=== PATIENT | male | born 1945 | race Caucasian/White ===

== ENCOUNTER 2017-04-30 16:53 | Observation (INO) | payer OTHER, SELFPAY ==
[~2017-04-30] VITALS: Ht 170.2 cm; Wt 91.6 kg
[2017-04-30] MEDS ORDERED: GLIM2TAB PO (17:19)
[2017-04-30] MEDS ORDERED: INSULANT SC (17:19)
[2017-04-30] MEDS ORDERED: LOSA100T36 PO (17:19)
[2017-04-30] MEDS ORDERED: METF10004 PO (17:19)
[2017-04-30] MEDS ORDERED: SIMV80TA PO (17:19)
[2017-04-30] MEDS ORDERED: ONDANSETRON 4MG/2ML VIAL (J2405) IV ONE (17:30)
[2017-04-30] MEDS ORDERED: NS 500 ML IV ONE (17:30)
[2017-04-30 17:41] LABS: BASO % 0.6 % (0.0-1.0); EOS # 0.1 K/mm3 (0.0-0.50); EOS % 0.7 % (0.0-3.0); LARGE UNSTAINED CELL # 0.2 K/mm3 (0.0-0.4); LARGE UNSTAINED CELL % 1.6 % (0.0-4.0); LYMPH # 2.4 K/mm3 (1.5-4.5); LYMPH % 24.9 % (24.0-44.0); MEAN CORPUSCULAR HEMOGLOBIN 30.1 pg (27.0-33.0); MEAN CORPUSCULAR HGB CONC 35.3 g/dl (32.0-36.5); MEAN CORPUSCULAR VOLUME 85.2 fl (80.0-96.0); MONO # 0.4 K/mm3 (0.0-0.8); MONO % 4.3 % (0.0-5.0); NEUTROPHILS # 6.5 K/mm3 (1.8-7.7); NEUTROPHILS % 67.9 % (36.0-66.0); PLATELET COUNT, AUTOMATED 226 k/mm3 (150-450); RED CELL DISTRIBUTION WIDTH 12.3 % (11.5-14.5); WHITE BLOOD COUNT 9.5 K/mm3 (4.0-10.0)
[2017-04-30 17:56] LABS: ALBUMIN 3.7 GM/DL (3.2-5.2); ALBUMIN/GLOBULIN RATIO 0.97 (1.00-1.93); ALKALINE PHOSPHATASE 72 U/L (45-117); ALT/SGPT 25 U/L (12-78); ANION GAP 9 MEQ/L (8-16); AST/SGOT 12 U/L (15-37); BILIRUBIN,DIRECT < 0.1 MG/DL (0.0-0.2); BILIRUBIN,TOTAL 0.3 MG/DL (0.2-1.0); BLOOD UREA NITROGEN 21 MG/DL (7-18); CALCIUM LEVEL 9.3 MG/DL (8.8-10.2); CARBON DIOXIDE LEVEL 24 MEQ/L (21-32); CHLORIDE LEVEL 101 MEQ/L (98-107); CREATININE FOR GFR 1.05 MG/DL (0.70-1.30); GLOMERULAR FILTRATION RATE > 60.0 (>42); GLUCOSE, FASTING 258 MG/DL (83-110); POTASSIUM SERUM 3.6 MEQ/L (3.5-5.1); SODIUM LEVEL 134 MEQ/L (136-145); TOTAL PROTEIN 7.5 GM/DL (6.4-8.2)
--- NOTE | 2017-04-30 18:51 | REP ---
CT BRAIN WITHOUT CONTRAST: CT brain is performed without IV contrast. There is mild atrophy. There is no midline shift. There is some minor periventricular small vessel ischemic changes which are probably old. There are minor basal ganglia calcifications. There is no acute hemorrhage. There is no extra-axial fluid collection. Bone window examination is unremarkable. IMPRESSION: Mild atrophy and chronic small vessel ischemic changes. No acute intracranial hemorrhage or other acute finding. Signed by Maciel Agee MD 04/30/2017 07:15 P
--- NOTE | 2017-04-30 19:00 | REP ---
ABDOMINAL SERIES: Supine and erect views of the abdomen demonstrate no free air and no evidence for bowel obstruction. No dilated small bowel loops are seen. Phleboliths are seen in the inferior pelvis. There are degenerative changes of the spine. An accompanying view of the chest demonstrates no acute infiltrate. There is calcification of the thoracic aorta. IMPRESSION: Negative abdominal series. Signed by Maciel Agee MD 04/30/2017 07:15 P
[2017-04-30] MEDS ORDERED: SODIUM CHLORIDE 0.9% 1000 ML IV ONE (20:45)
[2017-04-30] MEDS ORDERED: ONDANSETRON 4MG/2ML VIAL (J2405) IV PRN (22:15)
[2017-04-30] MEDS ORDERED: DEXTROSE 50% 50 ML SYRINGE IV PRN (22:15)
[2017-04-30] MEDS ORDERED: GLUCAGON FOR INJ 1 MG VIAL (J1610) SC PRN (22:15)
[2017-04-30] MEDS ORDERED: GLUCOSE 4 GM CHEW TABLET PO PRN (22:15)
[2017-04-30 23:53] VITALS: BP 184/91
[2017-05-01] VITALS (22 sets, daily range): BP systolic 136–203; BP diastolic 68–112
[2017-05-01] MEDS: HumaLOG INSULIN (NovoLOG) PER UNIT SC SCH ×5 (00:06→20:28)
[2017-05-01 04:35] LABS: MEAN CORPUSCULAR HEMOGLOBIN 31.4 pg (27.0-33.0); MEAN CORPUSCULAR HGB CONC 36.4 g/dl (32.0-36.5); MEAN CORPUSCULAR VOLUME 86.4 fl (80.0-96.0); RED CELL DISTRIBUTION WIDTH 12.7 % (11.5-14.5); WHITE BLOOD COUNT 9.4 K/mm3 (4.0-10.0)
[2017-05-01 05:07] LABS: ANION GAP 10 MEQ/L (8-16); BLOOD UREA NITROGEN 20 MG/DL (7-18); CALCIUM LEVEL 8.7 MG/DL (8.8-10.2); CARBON DIOXIDE LEVEL 28 MEQ/L (21-32); CHLORIDE LEVEL 105 MEQ/L (98-107); CHOLESTEROL LEVEL 104 MG/DL (<200); CREATININE FOR GFR 1.17 MG/DL (0.70-1.30); GLOMERULAR FILTRATION RATE > 60.0 (>42); GLUCOSE, FASTING 250 MG/DL (83-110); MAGNESIUM LEVEL 1.9 MG/DL (1.8-2.4); POTASSIUM SERUM 3.7 MEQ/L (3.5-5.1); SODIUM LEVEL 143 MEQ/L (136-145); TRIGLYCERIDES LEVEL 138 MG/DL (<150)
--- NOTE | 2017-05-01 07:54 | HPE ---
DATE OF ADMISSION: 04/30/2017 PRIMARY CARE PROVIDER: Dr. Mishra CHIEF COMPLAINT: Vomiting. SUMMARY OF THIS PRESENTATION: 71-year-old who was feeling well until earlier today around 2 p.m he had two peanut butter sandwiches. Around 3:30, he became what he describes as "dizzy," which appears to be lightheaded, although he is a relatively poor historian. 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 At that time, he vomited. He was diaphoretic and weak. From the urgent care, he was sent to [facility] where he was not orthostatic, but did vomit again. He is not complaining of the abdominal pain or discomfort. No chest pain. No shortness of breath. His nausea and vomiting is made worse by him being in an upright position, not relieved by anything in particular. He has never had any symptoms like this before. REVIEW OF SYSTEMS: Notable for recent injury or illness. No constipation. No palpations or shortness of breath, no cough. No change in urine. No change in bowel or bladder. Otherwise unremarkable. Past medical history is notable for diabetes on insulin, hypertension, hyperlipidemia. No previous surgical history. ALLERGIES: No known drug allergies. SOCIAL HISTORY: Uses occasional alcohol. Never been a smoker. FAMILY HISTORY: Not pertinent. HOME MEDICATION LIST INCLUDES: - glimepiride 2 mg by mouth daily - simvastatin 80 mg by mouth daily - losartan 100 mg by mouth daily - Lantus 45 units every morning daily - metformin 100 mg twice a day PHYSICAL EXAMINATION: Pulse 84, blood pressure 190/81, 96% on room air, blood pressure has been higher though, he was not orthostatic. He is awake, appropriate, interactive, pleasant conversant, somewhat uncomfortable upon arrival, better now. Flattened affect. Pupils equal, round and reactive, anicteric. Mucous membranes are moist. Neck supple. Breathing is symmetrical and rested. I:E ration is 1 to 3. No wheezes, rales or rhonchi. Heart is a regular rate and rhythm, no murmur. Elevation of jugular venous pulse (JVP). Abdomen is soft, doughy, nontender. No organomegaly. Normal bowel sounds. No mass. No costovertebral angle (CVA) tenderness. No rash. No lower extremity edema beyond the trace level. Alert and oriented times three. LABS REVIEWED SHOWED THE FOLLOWING: White cell count 9.5, hemoglobin 13.2, BUN 21, creatine 1.05, CK and troponins negative times two. Lipase 157. Blood culture is pending. Head CT unremarkable. Abdominal series unremarkable. Electrocardiogram (EKG) was done at the urgent care, which shows a sinus rhythm. No heart block. No acute ST-T wave changes. MY ASSESSMENT IS FOLLOWS: This is a 71-year-old with presyncope, nausea and vomiting. PLAN WILL BE FOLLOWS: 1. The patient is admitted to observation status to the PCU for further monitoring. 2. Cause for vomiting is unclear. He is relatively a poor historian. He may be have been presyncopal perhaps related to eating peanut butter sandwiches, but that seems less likely. I have concern about underlying cardiac either dysrhythmia or ischemic event. Will cycle troponins and monitor on telemetry. Repeat troponin will be in the morning. 3. The patient has poorly controlled diabetes. Will check a hemoglobin A1c. Will place on insulin. 4. The patient has hypertension. Will continue his home medications. 5. Deep vein thrombosis (DVT) prophylaxis ordered. 6. I have discussed this case with at bedside and with the patient's son, Enoch Torres, his phone number is [phone] [facility]
[2017-05-01] MEDS: ENOXAPARIN 40 MG/0.4 ML SYRINGE (J1650) SC SCH (08:09)
[2017-05-01] MEDS: LOSARTAN 50 MG TAB PO SCH (08:14)
[2017-05-01] MEDS: LEVEMIR (INSULIN DETEMIR) 1 UNITS/0.01ML SC SCH (08:27)
[2017-05-01] MEDS ORDERED: SIMVASTATIN 40 MG TAB PO SCH (09:00)
[2017-05-01] MEDS ORDERED: amLODIPine 5 MG TAB PO SCH (09:00)
[2017-05-01] MEDS ORDERED: CHLORTHALIDONE 25 MG TAB PO SCH (09:00)
--- NOTE | 2017-05-01 09:53 | IPNPDOC ---
Subjective Date Seen The patient was seen on 05/01/17. Subjective Chief Complaint/HPI The patient is a 71-year-old male admitted with a reason for visit of Pre- Syncope. General: Denies: ROS Unobtainable, Chills, Night Sweats, Fatigue, Malaise, Normal Appetite, Other Symptoms Constitutional: Denies: Chills, Fever, Malaise, Night Sweats, Weakness, Fatigue , Weight Loss, Lethargy, Other Eyes: Denies: Pain, Vision change, Conjunctivae inflammation, Eyelid inflammation, Redness, Other ENT: Denies: Head Aches, Ear Pain, Dysphagia, Sinus Congestion, Post Nasal Drip , Sore Throat, Epistaxis, Other Symptoms Skin: Denies: Rash, Lesions, Jaundice, Bruising, Itching, Dry, Breakdown, Nail Changes, Other Pulmonary: Denies: Dyspnea, Cough, Pleuritic Chest Pain, Other Symptoms Cardiovascular: Denies: Chest Pain, Palpitations, Orthopnea, Paroxysmal Noc. Dyspnea, Edema, Lt Headedness, Other Symptoms Gastrointestinal: Denies: Nausea, Vomiting, Abdominal Pain, Diarrhea, Constipation, Melena, Hematochezia, Other Symptoms Genitourinary: Denies: Dysuria, Frequency, Incontinence, Hematuria, Retention, Other Symptoms Objective Physical Examination General Exam: Positive: Alert, Cooperative, No Acute Distress Eye Exam: Positive: PERRLA, Conjunctiva & lids normal, EOMI, Negative: Sclera icteric ENT Exam: Positive: Atraumatic Chest Exam: Positive: Clear to auscultation, Normal air movement Heart Exam: Positive: Rate Normal, Regular Rhythm, Negative: Murmurs Telemetry: Positive: No significant arrhythmia Abdomen Exam: Positive: Normal bowel sounds, Soft, Negative: Tenderness Psych Exam: Positive: Mental status NL, Mood NL, Oriented x 3 Assessment /Plan Problems (1) Pre-syncope Status: Acute Response to Treatment: Improving Discussed With: Patient Problem Specific Plan: Monitor Clinically, Repeat Tests Problem Text: Unclear etiology. Will continue to monitor on telemetry to evaluate for arrhythmia. Echo pending for possible cardiac etiology. MRI brain pending for possible CVA. Carotid US pending. Patient is poor historian, but states this may not be his first episode of near syncope. (2) HTN (hypertension) Status: Chronic Discussed With: Patient Problem Specific Plan: Monitor Clinically (3) Diabetes Status: Chronic Discussed With: Patient Problem Specific Plan: Repeat Labs Problem Text: Non-compliant with dietary modifications. Counselling provided at bedside. (4) Dyslipidemia Status: Chronic Discussed With: Patient Plan/VTE VTE Prophylaxis Ordered?: Yes Plan Diet: Continue Current Activity: Continue Current Therapy: PT Diagnostics: MRI, TTE VS, I&O, 24H, Fishbone Vital Signs/I&O Vital Signs Date Time Temp Pulse Resp B/P (MAP) Pulse Ox O2 Delivery O2 Flow Rate FiO2 05/01/17 08:14 172/90 05/01/17 08:00 98.0 84 20 97 Room Air I&O- Last 24 Hours up to 6 AM 05/01/17 06:00 Intake Total 500 ml Output Total 850 ml Balance -350 ml Laboratory Data 24H LABS Laboratory Tests 2 04/30/17 17:16: White Blood Count 9.5, Red Blood Count 4.38, Hemoglobin 13.2L, Hematocrit 37.3L , Mean Corpuscular Volume 85.2, Mean Corpuscular Hemoglobin 30.1, Mean Corpuscular Hemoglobin Concent 35.3, Red Cell Distribution Width 12.3, Platelet Count 226, Neutrophils (%) (Auto) 67.9H, Lymphocytes (%) (Auto) 24.9, Monocytes (%) (Auto) 4.3, Eosinophils (%) (Auto) 0.7, Basophils (%) (Auto) 0.6, Neutrophils # (Auto) 6.5, Lymphocytes # (Auto) 2.4, Monocytes # (Auto) 0.4, Eosinophils # (Auto) 0.1, Basophils # (Auto) 0.0, Large Unclassified Cells % 1.6 , Large Unclassified Cells # 0.2, Anion Gap 9, Glomerular Filtration Rate > 60.0 , Lactic Acid Level 1.4, Calcium Level 9.3, Aspartate Amino Transf (AST/SGOT) 12L, Alanine Aminotransferase (ALT/SGPT) 25, Alkaline Phosphatase 72, Total Bilirubin 0.3, Direct Bilirubin < 0.1, Total Creatine Kinase 106, Creatine Kinase MB 3.5, Creatine Kinase MB Relative Index 3.30, Troponin I < 0.02, Total Protein 7.5, Albumin 3.7, Albumin/Globulin Ratio 0.97L, Lipase 157 04/30/17 20:55: Total Creatine Kinase 98, Creatine Kinase MB 2.9, Creatine Kinase MB Relative Index 2.95, Troponin I < 0.02 04/30/17 23:52: Urine Appearance CLEAR, Urine Color YELLOW, Urine pH 5.0, Urine Specific [place] 1.021, Urine Protein NEGATIVE, Urine Glucose (UA) 3+H, Urine Ketones TRACEH, Urine Urobilinogen 0.2, Urine Bilirubin NEGATIVE, Urine Leukocyte Esterase NEGATIVE, Urine Blood NEGATIVE, Urine Nitrite NEGATIVE, Urine WBC (Auto ) 1, Urine RBC (Auto) 1, Urine Hyaline Casts (Auto) 0, Urine Bacteria (Auto) NEGATIVE, Urine Squamous Epithelial Cells 0, Urine Mucus (Auto) SMALL, Urine Sperm (Auto) 05/01/17 04:27: Anion Gap 10, Glomerular Filtration Rate > 60.0, Calcium Level 8.7L, Total Creatine Kinase 90, Creatine Kinase MB 2.4, Creatine Kinase MB Relative Index 2.66, Troponin I < 0.02, Estimated Mean Plasma Glucose 280H, Hemoglobin A1c 11.4H, Magnesium Level 1.9, Triglycerides Level 138, LDL Cholesterol 32.4, Total Cholesterol 104, Non-HDL Cholesterol (LDL + VLDL) 60, Total HDL Cholesterol 44, Cholesterol/HDL Ratio 2.363 CBC/BMP Laboratory Tests 04/30/17 17:16 Red Blood Count 4.38, Mean Corpuscular Volume 85.2, Mean Corpuscular Hemoglobin 30.1, Mean Corpuscular Hemoglobin Concent 35.3, Red Cell Distribution Width 12.3 , Neutrophils (%) (Auto) 67.9 H, Lymphocytes (%) (Auto) 24.9, Monocytes (%) ( Auto) 4.3, Eosinophils (%) (Auto) 0.7, Basophils (%) (Auto) 0.6, Neutrophils # ( Auto) 6.5, Lymphocytes # (Auto) 2.4, Monocytes # (Auto) 0.4, Eosinophils # (Auto ) 0.1, Basophils # (Auto) 0.0 05/01/17 04:27 Red Blood Count 4.04 L, Mean Corpuscular Volume 86.4, Mean Corpuscular Hemoglobin 31.4, Mean Corpuscular Hemoglobin Concent 36.4, Red Cell Distribution Width 12.7 Microbiology Microbiology 04/30/17 Blood Culture, Received Pending 04/30/17 Blood Culture, Received Pending 04/30/17 Urine Culture, Received Pending JIL MCNAIR MD May 01, 2017 09:53
--- NOTE | 2017-05-01 13:32 | REP ---
CAROTID DUPLEX ULTRASOUND: 05/01/2017. Clinical history: Near-syncope. Hypertension. Findings: No prior study. The right common carotid artery shows some intimal thickening and minimal soft plaque. I do not see any significant plaque in the bulb or ICA on the right. The left internal carotid artery also shows some soft plaque in the CCA and bulb but not much extending into the ICA or ECA. Peak velocities: CCA systolic: right 0.62 m/s left 0.69 m/s ICA systolic: right 0.39 m/s left 0.40 m/s ICA diastolic: right 0.14 m/m left 0.09 m/s ECA systolic: right 0.55 m/s left 0.63 m/s IC/CC ratio: right 0.63 left 0.58 Cranial direction of flow is seen in the left vertebral artery. A right vertebral artery flow was not evident. The Doppler waveform analysis has no significant spectral broadening or filling in of the systolic window for either internal carotid. Impression: 1. Mild carotid stenosis certainly well less than 50% without hemodynamically significant or flow restricting lesion on either side. 2. Cranial direction of flow in the left vertebral artery. The right vertebral artery is not identified. Signed by Arian Laguerre MD 05/01/2017 04:34 P
--- NOTE | 2017-05-01 13:50 | REP ---
REASON: Syncopal episode, possible CVA. Comparison examination: None. TECHNIQUE: Sagittal T1. Axial T2, FLAIR, DWI and ADC. FINDINGS: The craniocervical junction is normal. There is no cerebellar tonsillar ectopia. The visualized portions of the spinal cord and neural canal are within normal limits. The ventricles and sulci are within normal limits for the patient's age. There are no extra-axial fluid collections. There is no shift of the midline structures. The deep cerebral white matter is within normal limits. Diffusion weighted images and ADC mapping shows no signal abnormality. The orbital and petrous structures, cerebellopontine angles, and posterior fossa are within normal limits. The sella turcica, cavernous and paracavernous structures are within normal limits. The visualized portions of the paranasal sinuses and the mastoid air cells are clear. IMPRESSION: Unremarkable MRI examination of the brain. Age related deep white matter ischemic changes are suspected which are mild. There is minimal mucosal thickening seen in the maxillary sinuses along with a small 1.5 cm size left maxillary sinus mucous retention cyst. Signed by Osvaldo Haywood DO 05/01/2017 02:27 P
--- NOTE | 2017-05-01 17:04 | ECGEPIP ---
Stationary ECG Study [facility] Test Date: 2017-05-01 Pat Name: RESHMA XIONG Department: Room: [place] [address] Gender: M [employer] Controls Consultant: KRISTAN : 1945 Requested By: JIM Mars Order Number: [id number] Reading MD: Jim Pickard Measurements Intervals [place] Rate: 81 P: 48 IN: 170 QRS: 16 QRSD: 88 T: 27 QT: 354 QTc: 412 Interpretive Statements SINUS RHYTHM Comparison tracing not on file Electronically Signed On 05-01-2017 17:04:32 EDT by Jim Pickard
[2017-05-01] MEDS ORDERED: amLODIPine 5 MG TAB PO ONE (17:30)
[2017-05-01] MEDS: hydrALAZINE INJ 20 MG/ML VIAL IV SCH (20:21)
[2017-05-01] MEDS: ACETAMINOPHEN TAB 650MG DOSE (2X325MG) PO PRN (23:37)
[2017-05-02] VITALS (7 sets, daily range): BP systolic 127–179; BP diastolic 80–95
[2017-05-02] MEDS: hydrALAZINE INJ 20 MG/ML VIAL IV SCH (04:20)
[2017-05-02 04:39] LABS: MEAN CORPUSCULAR HEMOGLOBIN 30.5 pg (27.0-33.0); MEAN CORPUSCULAR HGB CONC 35.6 g/dl (32.0-36.5); MEAN CORPUSCULAR VOLUME 85.7 fl (80.0-96.0); RED CELL DISTRIBUTION WIDTH 12.6 % (11.5-14.5); WHITE BLOOD COUNT 9.2 K/mm3 (4.0-10.0)
[2017-05-02 04:40] LABS: ANION GAP 8 MEQ/L (8-16); BLOOD UREA NITROGEN 18 MG/DL (7-18); CALCIUM LEVEL 9.1 MG/DL (8.8-10.2); CARBON DIOXIDE LEVEL 29 MEQ/L (21-32); CHLORIDE LEVEL 103 MEQ/L (98-107); GLOMERULAR FILTRATION RATE > 60.0 (>42); GLUCOSE, FASTING 212 MG/DL (83-110); SODIUM LEVEL 140 MEQ/L (136-145)
--- NOTE | 2017-05-02 06:50 | ECHO ---
DATE OF PROCEDURE: REFERRING PHYSICIAN: Dr. Jean Marie Horner INDICATION: Syncope. HEIGHT: 170 cm WEIGHT: 93 kg MEASUREMENTS: Left atrium: 4.2 cm Ventricular septum: 1.20 cm Posterior wall: 1.08 cm Left ventricle diastole: 4.8 cm Proximal ascending aorta 3.5 cm Aortic root: 3.5 cm Aortic annulus: 2.3 cm Inferior vena cava: 1.6 cm. DOPPLER MEASUREMENTS: Aortic valve velocity: 176 cm/s LVOT velocity: 97.0 cm/s LVOT VTI: 17.2 cm Mitral E velocity: 66.1 cm/s Mitral A velocity: 103 cm/s Mitral deceleration time: 201 ms Mild tricuspid regurgitation. Pulmonary artery systolic pressure 46 mmHg. MITRAL ANNULAR TISSUE DOPPLER: E prime septal: 5.1 cm/s E prime lateral: 8.7 cm/s DESCRIPTION: Rhythm was sinus. This is of moderately technically difficult echocardiogram. No pericardial effusion. This is a 2D, M-mode, color flow Doppler, and pulse wave Doppler examination and included mitral annular tissue Doppler. CONCLUSIONS: 1. Normal left ventricle internal dimensions and wall thickness. Normal left ventricle (LV) wall motion and wall thickening. Normal LV systolic function. Left ventricular ejection fraction (LVEF) of 65% by visual estimate. 2. Grade 1 LV diastolic dysfunction (impaired relaxation filling pattern). 3. Mild left atrial enlargement. 4. Suggestive of moderate elevation of pulmonary artery systolic pressure (46 mmHg). 5. Moderate mitral annular calcification. No mitral stenosis. No mitral regurgitation . 6. Mild aortic valve sclerosis of a three-cuspid aortic valve. No aortic regurgitation.
[2017-05-02] MEDS: LOSARTAN 50 MG TAB PO SCH (07:50)
[2017-05-02] MEDS: amLODIPine 5 MG TAB PO SCH (07:50)
[2017-05-02] MEDS: HumaLOG INSULIN (NovoLOG) PER UNIT SC SCH ×4 (07:52→20:49)
--- NOTE | 2017-05-02 08:17 | IPNPDOC ---
Subjective Date Seen The patient was seen on 05/02/17. Subjective Chief Complaint/HPI The patient is a 71-year-old male admitted with a reason for visit of Pre- Syncope. General: Denies: ROS Unobtainable, Chills, Night Sweats, Fatigue, Malaise, Normal Appetite, Other Symptoms Constitutional: Denies: Chills, Fever, Malaise, Night Sweats, Weakness, Fatigue , Weight Loss, Lethargy, Other Eyes: Denies: Pain, Vision change, Conjunctivae inflammation, Eyelid inflammation, Redness, Other ENT: Denies: Head Aches, Ear Pain, Dysphagia, Sinus Congestion, Post Nasal Drip , Sore Throat, Epistaxis, Other Symptoms Skin: Denies: Rash, Lesions, Jaundice, Bruising, Itching, Dry, Breakdown, Nail Changes, Other Pulmonary: Denies: Dyspnea, Cough, Pleuritic Chest Pain, Other Symptoms Cardiovascular: Denies: Chest Pain, Palpitations, Orthopnea, Paroxysmal Noc. Dyspnea, Edema, Lt Headedness, Other Symptoms Gastrointestinal: Denies: Nausea, Vomiting, Abdominal Pain, Diarrhea, Constipation, Melena, Hematochezia, Other Symptoms Genitourinary: Denies: Dysuria, Frequency, Incontinence, Hematuria, Retention, Other Symptoms Objective Physical Examination General Exam: Positive: Alert, Cooperative, No Acute Distress Eye Exam: Positive: PERRLA, Conjunctiva & lids normal, EOMI, Negative: Sclera icteric ENT Exam: Positive: Atraumatic Chest Exam: Positive: Clear to auscultation, Normal air movement Heart Exam: Positive: Rate Normal, Regular Rhythm, Negative: Murmurs Telemetry: Positive: Sinus, Tachycardia Abdomen Exam: Positive: Normal bowel sounds, Soft, Negative: Tenderness Psych Exam: Positive: Mental status NL, Mood NL, Oriented x 3 Assessment /Plan Problems (1) Pre-syncope Status: Acute Response to Treatment: Improving Discussed With: Patient Problem Specific Plan: Monitor Clinically, Repeat Tests Problem Text: Unclear etiology. No significant events on telemetry. He is sinus tachy today. Echo with no cardiac etiology for near syncope - grade I diastolic dysfunction. MRI brain unremarkable. Carotid US unremarkable. (2) HTN (hypertension) Status: Chronic Discussed With: Patient Problem Specific Plan: Monitor Clinically Problem Text: Still uncontrolled. Continue with losartan, norvasc, chlorthalidone. (3) Diabetes Status: Chronic Discussed With: Patient Problem Specific Plan: Repeat Labs Problem Text: Non-compliant with dietary modifications. Counselling provided at bedside. (4) Dyslipidemia Status: Chronic Discussed With: Patient Problem Text: transitioned from simvastatin to atorvastatin. Plan/VTE VTE Prophylaxis Ordered?: Yes Plan Diet: Continue Current Activity: Continue Current Therapy: PT (cleared by PT) Diagnostics: MRI DC home once blood pressures stabilized - anticipating 24-48 hours. Spoke with son Enoch by phone, requesting D Dimer assay. VS, I&O, 24H, Fishbone Vital Signs/I&O Vital Signs Date Time Temp Pulse Resp B/P (MAP) Pulse Ox O2 Delivery O2 Flow Rate FiO2 05/02/17 07:50 96 179/95 05/02/17 07:30 98.2 20 93 Room Air I&O- Last 24 Hours up to 6 AM 05/02/17 06:00 Intake Total 1200 ml Output Total 3075 ml Balance -1875 ml Laboratory Data 24H LABS Laboratory Tests 2 05/01/17 12:31: Bedside Glucose (Misc Panel) 289H 05/01/17 17:35: Bedside Glucose (Misc Panel) 174H 05/01/17 20:23: Bedside Glucose (Misc Panel) 311H 05/02/17 04:08: Anion Gap 8, Glomerular Filtration Rate > 60.0, Blood Urea Nitrogen 18, Creatinine 1.10, Sodium Level 140, Potassium Level 4.0, Chloride Level 103, Carbon Dioxide Level 29, Calcium Level 9.1, Magnesium Level 2.0 05/02/17 08:04: CBC/BMP Laboratory Tests 05/02/17 04:08 Red Blood Count 4.52, Mean Corpuscular Volume 85.7, Mean Corpuscular Hemoglobin 30.5, Mean Corpuscular Hemoglobin Concent 35.6, Red Cell Distribution Width 12.6 , Calcium Level 9.1 Microbiology Microbiology 04/30/17 Blood Culture - Preliminary, Resulted No growth after 24 hours . All specim... 04/30/17 Blood Culture - Preliminary, Resulted No growth after 24 hours . All specim... 04/30/17 Urine Culture - Final, Complete JIL MCNAIR MD May 02, 2017 08:17
[2017-05-02] MEDS: LEVEMIR (INSULIN DETEMIR) 1 UNITS/0.01ML SC SCH (09:13)
[2017-05-02] MEDS: ENOXAPARIN 40 MG/0.4 ML SYRINGE (J1650) SC SCH (09:13)
[2017-05-02] MEDS: ACETAMINOPHEN TAB 650MG DOSE (2X325MG) PO PRN (09:15)
[2017-05-02] MEDS ORDERED: ATORVASTATIN 20 MG TAB PO SCH (21:00)
[2017-05-03] VITALS (7 sets, daily range): BP systolic 136–176; BP diastolic 71–107
[2017-05-03 04:41] LABS: MEAN CORPUSCULAR HEMOGLOBIN 30.3 pg (27.0-33.0); MEAN CORPUSCULAR HGB CONC 35.4 g/dl (32.0-36.5); MEAN CORPUSCULAR VOLUME 85.6 fl (80.0-96.0); RED CELL DISTRIBUTION WIDTH 12.5 % (11.5-14.5); WHITE BLOOD COUNT 8.1 K/mm3 (4.0-10.0)
[2017-05-03 05:01] LABS: ANION GAP 10 MEQ/L (8-16); BLOOD UREA NITROGEN 19 MG/DL (7-18); CALCIUM LEVEL 9.6 MG/DL (8.8-10.2); CARBON DIOXIDE LEVEL 28 MEQ/L (21-32); CHLORIDE LEVEL 105 MEQ/L (98-107); CREATININE FOR GFR 1.04 MG/DL (0.70-1.30); GLOMERULAR FILTRATION RATE > 60.0 (>42); GLUCOSE, FASTING 198 MG/DL (83-110); MAGNESIUM LEVEL 2.1 MG/DL (1.8-2.4); POTASSIUM SERUM 3.7 MEQ/L (3.5-5.1); SODIUM LEVEL 143 MEQ/L (136-145)
[2017-05-03] MEDS: amLODIPine 5 MG TAB PO SCH (07:44)
[2017-05-03] MEDS: HumaLOG INSULIN (NovoLOG) PER UNIT SC SCH (07:44)
[2017-05-03] MEDS: LOSARTAN 50 MG TAB PO SCH (07:45)
[2017-05-03] MEDS ORDERED: AMLO5TAB2 PO (07:53)
[2017-05-03] MEDS ORDERED: ATOR1TAB21 PO (07:53)
[2017-05-03] MEDS: LEVEMIR (INSULIN DETEMIR) 1 UNITS/0.01ML SC SCH (09:13)
--- NOTE | 2017-05-03 12:21 | DS.PDOC ---
Discharge Summary General Date of Admission Apr 30, 2017 at 22:09 Date of Discharge 05/03/17 Primary Care Physician: PARAG TAY M.D. Discharge Summary PROCEDURES PERFORMED DURING STAY: [None]. DISCHARGE DIAGNOSES: 1. Near syncope. 2. HTN 3. IDDM - uncontrolled 4. Dyslipidemia COMPLICATIONS/CHIEF COMPLAINT: Pre-Syncope. 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 States was in usual state of health that day and prior day. States he is compliant with medications, exercises daily (walks 2 miles daily), non-compliant with dietary restrictions. History not entirely clear, but may not have been his first near syncopal episode. Admitted for further workup. No cardiologic etiology determined for his episode. Hospital stay complicated with uncontrolled blood pressures. Eventually resolved with administration of amlodipine. Statin changed from simvastatin to atorvastatin due to possible side effect with amlodipine. Case discussed at length with his son who is a physician. Evaluated by PT with no further recommendations. Discharged home in stable condition. Has follow up appointment on Thursday05/04/17 with his PCP. DISCHARGE MEDICATIONS: Please see below. ALLERGIES: Please see below. PHYSICAL EXAMINATION ON DISCHARGE: VITAL SIGNS: Please see below. GENERAL: NAD HEENT: NC/AT, EOMI, PERRL NECK: supple CARDIOVASCULAR EXAMINATION: +S1S2, RRR RESPIRATORY EXAMINATION: CTA B/L ABDOMINAL EXAMINATION: soft, NT, +BS EXTREMITIES: no edema SKIN: no rashes NEUROLOGICAL EXAMINATION: no gross focal deficits PSYCHIATRIC EXAMINATION: AAOx3 LABORATORY DATA: Please see below. IMAGING: Echocardiogram: 1. Normal left ventricle internal dimensions and wall thickness. Normal left ventricle (LV) wall motion and wall thickening. Normal LV systolic function. Left ventricular ejection fraction (LVEF) of 65% by visual estimate. 2. Grade 1 LV diastolic dysfunction (impaired relaxation filling pattern). 3. Mild left atrial enlargement. 4. Suggestive of moderate elevation of pulmonary artery systolic pressure (46 mmHg). 5. Moderate mitral annular calcification. No mitral stenosis. No mitral regurgitation . 6. Mild aortic valve sclerosis of a three-cuspid aortic valve. No aortic regurgitation. MRI Brain: Unremarkable MRI examination of the brain. Age related deep white matter ischemic changes are suspected which are mild. There is minimal mucosal thickening seen in the maxillary sinuses along with a small 1.5 cm size left maxillary sinus mucous retention cyst. Carotid Doppler: 1. Mild carotid stenosis certainly well less than 50% without hemodynamically significant or flow restricting lesion on either side. 2. Cranial direction of flow in the left vertebral artery. The right vertebral artery is not identified. CT Head: Mild atrophy and chronic small vessel ischemic changes. No acute intracranial hemorrhage or other acute finding. ACTIVITY: [As tolerated]. DIET: carb consistent, 2 gram sodium, low fat low cholesterol DISPOSITION: 01 Home, Self-Care. DISCHARGE INSTRUCTIONS: 1. Follow up with PCP as scheduled 2. Medications as directed 3. Dietary restrictions as discussed ITEMS TO FOLLOWUP ON ON OUTPATIENT: 1. Recommend further intervention regarding uncontrolled diabetes. DISCHARGE CONDITION: [Stable]. TIME SPENT ON DISCHARGE: Greater than 30 minutes. Vital Signs/I&Os Vital Signs Date Time Temp Pulse Resp B/P (MAP) Pulse Ox O2 Delivery O2 Flow Rate FiO2 05/03/17 09:21 98 140/83 (102) 05/03/17 07:28 97.2 17 97 Room Air I&O- Last 24 Hours up to 6 AM 05/03/17 06:00 Intake Total 1400 ml Output Total 1900 ml Balance -500 ml Laboratory Data Labs 24H Laboratory Tests 2 05/02/17 16:28: Bedside Glucose (Misc Panel) 174H 05/02/17 20:45: Bedside Glucose (Misc Panel) 290H 05/03/17 04:18: Anion Gap 10, Glomerular Filtration Rate > 60.0, Blood Urea Nitrogen 19H, Creatinine 1.04, Sodium Level 143, Potassium Level 3.7, Chloride Level 105, Carbon Dioxide Level 28, Calcium Level 9.6, Magnesium Level 2.1 CBC/BMP Laboratory Tests 05/03/17 04:18 Red Blood Count 4.79, Mean Corpuscular Volume 85.6, Mean Corpuscular Hemoglobin 30.3, Mean Corpuscular Hemoglobin Concent 35.4, Red Cell Distribution Width 12.5 , Calcium Level 9.6 FSBS Laboratory Tests Test 05/02/17 16:28 05/02/17 20:45 Range/Units Bedside Glucose (Misc Panel) 174 290 83-110 MG/DL Microbiology Microbiology 04/30/17 Blood Culture - Preliminary, Resulted No Growth after 48 hours. All Specime... 04/30/17 Blood Culture - Preliminary, Resulted No Growth after 48 hours. All Specime... 04/30/17 Urine Culture - Final, Complete Discharge Medications Scheduled Amlodipine Besylate (Amlodipine Besylate) 5 Mg Tab, 5 MG PO DAILY Atorvastatin Calcium (Atorvastatin Calcium) 20 Mg Tab, 80 MG PO QHS Glimepiride (Glimepiride) 2 Mg Tab, 2 MG PO DAILY, (Reported) Insulin Glargine (Lantus) 1 Units/0.01 Ml Susp, 45 UNITS SC DAILY, (Reported) Losartan Potassium (Losartan Potassium) 100 Mg Tab, 100 MG PO DAILY, (Reported) Metformin Hydrochloride (Metformin HCl) 1,000 Mg Tab, 1,000 MG PO BID, (Reported ) Allergies Coded Allergies: No Known Allergies (Unverified , 04/30/17) JIL MCNAIR MD May 03, 2017 12:21
[2017-05-03] MEDS ORDERED: MIRA3350 PO (19:48)
== END 2017-05-03 09:36 | disposition home or self-care (01) ==
LOC: M ED 16:53 → EDBD 16:53 → M ED INP 22:09 → M ICU 23:47
PROVIDERS: ADMIT Internal Medicine; ATTEND Internal Medicine
DX: R55 Syncope and collapse (principal); I10 Essential (primary) hypertension; E11.65 Type 2 diabetes mellitus with hyperglycemia; E78.4 Other hyperlipidemia; Z79.4 Long term (current) use of insulin; I35.0 Nonrheumatic aortic (valve) stenosis; Z79.899 Other long term (current) drug therapy
CPT/HCPCS: 36415; 70450; 70551; 74022; 80048; 80061; 80076; 81001; 82550; 82553; 83036; 83605; 83690; 83735; 84443; 84484; 85025; 85027; 85379; 87040; 87086; 93005; 93041; 93306; 93880; 96372; 96374; 96375; 96376; 97161; 99285; G0378; J1650; J2405

== ENCOUNTER 2017-05-03 18:10 | Emergency (ER) | payer OTHER ==
[~2017-05-03] VITALS: Ht 170.2 cm; Wt 91.8 kg
[~2017-05-03 18:10] MED LIST: AMLO5TAB2 PO; ATOR1TAB21 PO; GLIM2TAB PO; INSULANT SC; LOSA100T36 PO; METF10004 PO; SIMV80TA PO
[2017-05-03] MEDS ORDERED: FLEET ENEMA PR PRN (18:30)
[2017-05-03] MEDS ORDERED: MIRA3350 PO (19:48)
[2017-05-03 19:51] VITALS: BP 145/83
[2017-05-03] MEDS ORDERED: MAGNESIUM CITRATE 300 ML BTL PO ONE (20:00)
--- NOTE | 2017-05-04 02:19 | REP ---
Clinical: Abdominal pain and constipation. Technique: Two supine views of the abdomen and pelvis. Findings: Bowel gas pattern is relatively nonspecific and without evidence for obstruction or perforation. Moderate amount of retained fecal material at the rectosigmoid cannot be excluded and should be correlated clinically. No organomegaly. No abnormal calcifications. Skeletal structures demonstrate degenerative changes to the lumbosacral spine and bilateral hips. Impression: Nonspecific bowel gas pattern. Mild fecal stasis at the rectosigmoid cannot be excluded. Signed by Corby Salter MD 05/04/2017 02:11 A
== END 2017-05-03 20:00 | disposition home or self-care (01) ==
LOC: M ED 18:10
DX: K56.41 Fecal impaction (principal); E10.9 Type 1 diabetes mellitus without complications; I10 Essential (primary) hypertension; Z79.4 Long term (current) use of insulin; Z79.899 Other long term (current) drug therapy

== ENCOUNTER → 2019-08-30 | Outpatient (CLI) | payer OTHER ==
[~2019-08-30] MED LIST changes: -AMLO5TAB2 PO; +AMLO5TAB6 PO; -GLIM2TAB PO; +GLIM2TAB2 PO; -LOSA100T36 PO; +LOSA100T50 PO; +MIRA3350 PO; -SIMV80TA PO; +SIMV80TA13 PO
--- NOTE | 2019-08-30 10:34 | REP ---
Clinical: Trauma. Contusion. Technique: AP, lateral, bilateral oblique views of the right fifth toe. Findings: Evaluation is limited by degenerative changes. A subtle nondisplaced fracture involving the distal phalanx or at the base of the proximal phalanx cannot definitively be excluded. No subcutaneous emphysema. No foreign body. Impression: Degenerative changes. Cannot exclude a very subtle nondisplaced fracture. No obvious acute injury. Electronically Signed by Corby Salter MD 08/30/2019 10:25 A
== END ==
LOC: M WUC 09:57
PROVIDERS: ATTEND Physician Assistant
DX: S90.121A Contusion of right lesser toe(s) without damage to nail, initial encounter (principal); X58.XXXA Exposure to other specified factors, initial encounter

== ENCOUNTER 2021-04-09 08:51 | Inpatient (IN) | payer MEDICARE, OTHER ==
[~2021-04-09] VITALS: Ht 172.7 cm; Wt 95.3 kg
[~2021-04-09 08:51] MED LIST changes: +AMLO1TAB24 PO; -AMLO5TAB6 PO; -GLIM2TAB2 PO; +GLIM2TAB4 PO
[2021-04-09] MEDS ORDERED: ZOCO80TA PO (09:19)
[2021-04-09 10:32] LABS: BASO % 0.2 % (0.0-1.0); HEMOGLOBIN 14.2 g/dl (13.5-17.5); LYMPH # 0.9 10^3/uL (1.5-5.0); LYMPH % 5.8 % (24.0-44.0); MEAN CORPUSCULAR HEMOGLOBIN 28.5 pg (27.0-33.0); MEAN CORPUSCULAR HGB CONC 33.8 g/dl (32.0-36.5); MEAN CORPUSCULAR VOLUME 84.3 fl (80.0-96.0); MONO # 0.9 10^3/uL (0.0-0.8); MONO % 5.6 % (2.0-8.0); NEUTROPHILS # 14.2 10^3/uL (1.5-8.5); NEUTROPHILS % 87.8 % (36.0-66.0); PLATELET COUNT, AUTOMATED 216 10^3/uL (150-450); RED BLOOD COUNT 4.98 10^6/uL (4.30-6.10); WHITE BLOOD COUNT 16.2 10^3/uL (4.0-10.0)
[2021-04-09] MEDS ORDERED: NS 1,000 ML IV ONE (10:40)
--- NOTE | 2021-04-09 11:13 | REP ---
INDICATION: fever COMPARISON: 04/30/2017 TECHNIQUE: Portable AP view of the chest FINDINGS: The mediastinum and cardiac silhouette are stable and within normal limits for portable technique. The lung marquez are clear without acute consolidation, effusion, or pneumothorax. Skeletal structures are intact. IMPRESSION: No acute cardiopulmonary process appreciated. <Electronically signed by Corby Salter > 04/09/21 [id number]
[2021-04-09] MEDS ORDERED: ONDANSETRON 4MG/2ML VIAL IV ONE (11:45)
[2021-04-09 12:21] LABS: ALBUMIN 3.2 GM/DL (3.2-5.2); BILIRUBIN,TOTAL 0.8 MG/DL (0.2-1.0); CALCIUM LEVEL 9.1 MG/DL (8.8-10.2); CREATININE FOR GFR 1.56 MG/DL (0.70-1.30); GLOMERULAR FILTRATION RATE 46.4 (>42); POTASSIUM SERUM 4.2 MEQ/L (3.5-5.1); TOTAL PROTEIN 7.7 GM/DL (6.4-8.2)
[2021-04-09] MEDS ORDERED: ACETAMINOPHEN TAB 650MG DOSE (2X325MG) PO ONE (13:50)
[2021-04-09] MEDS ORDERED: NS 500 ML IV ONE (13:50)
[2021-04-09] MEDS ORDERED: ISOVUE-370 76% 100ML VIAL As Ordered ONE (13:56)
[2021-04-09] MEDS ORDERED: ASPI81TA26 PO (14:04)
[2021-04-09] MEDS ORDERED: D-40TAB2 PO (14:04)
--- NOTE | 2021-04-09 14:33 | REP ---
INDICATION: fever, low sat COMPARISON: None. TECHNIQUE: Axial contrast enhanced images from the thoracic inlet to the upper abdomen using pulmonary embolus technique with multiplanar re-formations. 75 ml Isovue 370 intravenous contrast material administered without complication. This CT examination was performed using the following dose reduction techniques: Automated exposure control, adjustment of mA and/or kv according to the patient's size, and use of iterative reconstruction technique. FINDINGS: Evaluation is limited by significant respiratory motion artifact. No obvious pulmonary embolus is appreciated. Lung marquez demonstrate chronic change with superimposed early lower lobe consolidations/atelectasis (left greater than right). Reactive mediastinal lymph nodes are identified. Atherosclerotic changes to the thoracic aorta and coronary arteries noted without aortic aneurysm or dissection. No cardiomegaly or pericardial effusion. IMPRESSION: 1. Limited by respiratory motion. No obvious pulmonary embolus. 2. Atelectasis/Early lower lobe consolidations (left greater than right). <Electronically signed by Corby Salter > 04/09/21 [id number]
--- NOTE | 2021-04-09 14:38 | REP ---
INDICATION: fever, low sat. COMPARISON: None TECHNIQUE: Axial contrast-enhanced images from the lung bases to the pubic symphysis using 100 cc Isovue 370 intravenous contrast material. Coronal and sagittal reformations obtained. This CT examination was performed using the following dose reduction techniques: Automated exposure control, adjustment of mA and/or kv according to the patient's size, and the use of iterative reconstruction technique. FINDINGS: Liver, spleen, pancreas, gallbladder, and bilateral adrenal glands are normal. Kidneys demonstrate age-related cortical atrophy and 1 cm left renal cyst. The enteric system including stomach, small, and large bowel appears normal. No evidence for obstruction or acute inflammatory process. Normal terminal ileum and appendix are identified in the right lower quadrant. Scattered diverticula noted without acute diverticulitis. Pelvis demonstrates normal bladder and age-appropriate prostate/seminal vesicles. Moderate fat containing inguinal hernias noted (left greater than right). No ascites. No free air. No intraperitoneal or retroperitoneal adenopathy. Abdominal aorta and vasculature appear normal. Musculoskeletal structures are intact and without acute osseous abnormality. Lung bases demonstrate small bilateral infiltrates suggesting atelectasis/early pneumonia. IMPRESSION: No acute abdominopelvic pathology appreciated. Chronic findings as above. Bibasilar atelectasis/early pneumonia. <Electronically signed by Corby Salter > 04/09/21 [id number]
[2021-04-09] MEDS ORDERED: cefTRIAXone SOD 1 GM in D5W MINI-BAG PLUS 50 ML IV ONE (15:25)
[2021-04-09] MEDS ORDERED: AZITHROMYCIN INJ 500 MG, VIAL MATE ADAPTER 1 EACH in NS 250 ML IV ONE (15:25)
[2021-04-09 17:23] LABS: CK-MB VALUE MASS < 1.0 NG/ML (<3.6); CPK CREATINE PHOSPHOKINASE 160 U/L (39-308); MB/CK RELATIVE INDEX 0.62 (< OR =4); TROPONIN I 0.04 NG/ML (< 0.10)
[2021-04-09] MEDS ORDERED: GLUCOSE 4GM CHEW TABLET PO PRN (17:35)
[2021-04-09] MEDS ORDERED: GLUCAGON INJ 1MG VIAL SC PRN (17:35)
[2021-04-09] MEDS ORDERED: DEXTROSE 50% 50 ML SYRINGE IV PRN (17:35)
--- NOTE | 2021-04-09 17:59 | HPEPDOC ---
[facility] Medical History & Physical Date of Admission Apr 09, 2021 Date of Service: Apr 09, 2021 History and Physical CHIEF COMPLAINT: FEVERS HISTORY OF PRESENT ILLNESS: 75 year old male presents for two day history of ongoing fevers. Patient states his symptoms started after dinner of fish and chips, which he described as bad food. He developed abdominal discomfort, with subjective fevers and chills. He states Tmax at home 103F. Today he noted a headache, rated at 3/10, no clear area affected, non-radiating, no clear mod ifying factors, which resolved completely with Tylenol 650mg. Yesterday he presented to an urgent care facility for a COVID test which he reported was negative. Of note, he had a dental procedure consisting of fillings and cleaning one week ago 04/02/21. In the ED he has no medical complaints. He denies chest pain, shortness of breath, cough, headaches, changes in vision, abdominal pain, N/V/D, weakness, depressed mood. He denied any sick contacts, or any other sick participants from his 'bad' dinner. He does note recent travel to [place], driving by car both directions. While in [place] he denies any hiking or walking in any forested areas. at bedside corroborates his history. PAST MEDICAL HISTORY: #IDDM #HTN #HLD SOCIAL HISTORY: Reviewed and non-contributory. FAMILY HISTORY: Reviewed and non-contributory ALLERGIES: Please see below. REVIEW OF SYSTEMS: Negative except as per HPI HOME MEDICATIONS: Please see below. PHYSICAL EXAMINATION: VITAL SIGNS: See below GENERAL: NAD, lying comfortably in bed HEENT: NC/AT, EOMI, PERRL Lungs: CTA B/L Heart: +S1S2, RRR Abd: soft, NT, +BS Ext: no edema Neuro: no gross focal deficits Psych: AAOx3 Skin: no rash or obvious tick bites LABORATORY DATA: See below. MICROBIOLOGY: Please see below. A/P: 75 yo male presents for several day history of fever, with no clear source of infection. #fevers - blood cultures pending - IV fluids, empiric antibiotics - imaging unrevealing - possible early PNA? - lactic acidemia resolved - respiratory panel negative - check inflammatory markers, procalcitonin - PNA? tick bite? gastroenteritis? complication from his dental procedure? 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 Vital Signs Vital Signs Date Time Temp Pulse Resp B/P (MAP) Pulse Ox O2 Delivery O2 Flow Rate FiO2 04/09/21 17:24 102.1 121 26 198/84 (122) 93 Room Air Laboratory Data Labs 24H Laboratory Tests 2 04/09/21 10:21: Immature Granulocyte % (Auto) 0.6, Neutrophils (%) (Auto) 87.8H, Lymphocytes (%) (Auto) 5.8L, Monocytes (%) (Auto) 5.6, Eosinophils (%) (Auto) 0.0, Basophils (%) (Auto) 0.2, Neutrophils # (Auto) 14.2H, Lymphocytes # (Auto) 0.9L, Monocytes # (Auto) 0.9H, Eosinophils # (Auto) 0.0, Basophils # (Auto) 0.0, Nucleated Red Blood Cells % (auto) 0.0 04/09/21 11:02: Urine Color YELLOW, Urine Appearance HAZY, Urine pH 5.0, Urine Specific [place] 1.033, Urine Protein 2+H, Urine Glucose (UA) 3+H, Urine Ketones TRACEH, Urine Blood 2+H, Urine Nitrite NEGATIVE, Urine Bilirubin NEGATIVE, Urine Urobilinogen 0.2, Urine Leukocyte Esterase NEGATIVE, Urine WBC (Auto) 3, Urine RBC (Auto) 26H, Urine Hyaline Casts (Auto) 0, Urine Bacteria (Auto) NEGATIVE, Urine Squamous Epithelial Cells 0, Urine Granular Casts (Auto) 2, Urine Mucus (Auto) MODERATE, Urine Sperm (Auto) 04/09/21 11:04: Bedside Glucose (Misc Panel) 291H 04/09/21 11:30: Anion Gap 10, Glomerular Filtration Rate 46.4, Calcium Level 9.1, Total Bilirubin 0.8, Aspartate Amino Transf (AST/SGOT) 13, Alanine Aminotransferase (ALT/SGPT) 20, Alkaline Phosphatase 77, Total Protein 7.7, Albumin 3.2, Albumin/Globulin Ratio 0.7 04/09/21 11:52: Lactic Acid Level 2.3*H 04/09/21 16:48: Lactic Acid Followup at 4 Hours 1.2, Total Creatine Kinase 160, Creatine Kinase MB < 1.0, Creatine Kinase MB Relative Index 0.62, Troponin I 0.04 CBC/BMP Laboratory Tests 04/09/21 10:21 04/09/21 11:30 Microbiology Microbiology 04/09/21 Blood Culture, Received Pending 04/09/21 Respiratory Virus Panel (PCR) ([facility]) - Final, Complete 04/09/21 Blood Culture, Received Pending Home Medications Scheduled Aspirin (Aspirin EC) 81 Mg Tablet.dr, 81 MG PO DAILY Cholecalciferol (Vitamin D3) (Vitamin D-400) 10 Mcg Tablet, 800 UNITS PO DAILY Insulin Glargine (Lantus) 1 Units/0.01 Ml Susp, 40 UNITS SC DAILY Losartan Potassium (Losartan Potassium) 100 Mg Tab, 100 MG PO DAILY Metformin HCl (Metformin HCl) 1,000 Mg Tab, 1,000 MG PO BID Simvastatin (Zocor) 80 Mg Tablet, 80 MG PO DAILY Allergies Coded Allergies: No Known Allergies (Unverified , 04/30/17) A-FIB/CHADSVASC A-FIB History Current/History of A-Fib/PAF?: No JIL MCNAIR MD Apr 09, 2021 17:47
[2021-04-09] MEDS: NS 1,000 ML IV SCH (18:18)
[2021-04-09] MEDS: ACETAMINOPHEN TAB 650MG DOSE (2X325MG) PO PRN (18:33)
--- NOTE | 2021-04-09 20:05 | REPVR ---
PROCEDURE INFORMATION: Exam: CT Head Without Contrast Exam date and time: 04/09/2021 7:07 PM Age: 75 years old Clinical indication: Other: Fever, headache TECHNIQUE: Imaging protocol: Computed tomography of the head without contrast. Radiation optimization: All CT scans at this facility use at least one of these dose optimization techniques: automated exposure control; mA and/or kV adjustment per patient size (includes targeted exams where dose is matched to clinical indication); or iterative reconstruction. COMPARISON: MRI-Brain without Contrast 05/01/2017 11:31 AM FINDINGS: Brain: Mild nonspecific hypodensities of the periventricular and deep subcortical white matter, most likely secondary to chronic small vessel ischemic change. No intracranial hemorrhage or extra-axial fluid collection. No evidence of mass effect or midline shift. Agee-white matter differentiation is normal. Cerebral ventricles: Mild prominence of the ventricles and sulci, most likely attributed to parenchymal volume loss. Paranasal sinuses: Visualized sinuses are unremarkable. No fluid levels. Mastoid air cells: Unremarkable. Bones/joints: No acute osseus lesion or fracture. Soft tissues: Unremarkable. IMPRESSION: 1. No acute intracranial pathology. 2. Other chronic findings, as above. Electronically signed by: Saleem Galeana On 04/09/2021 20:04:50 PM
[2021-04-09 22:45] VITALS: BP 160/82
[2021-04-09] MEDS: HumaLOG INSULIN (NovoLOG) PER UNIT SC SCH ×2 (22:45→23:05)
[2021-04-09 23:38] LABS: CK-MB VALUE MASS < 1.0 NG/ML (<3.6); CPK CREATINE PHOSPHOKINASE 296 U/L (39-308); MB/CK RELATIVE INDEX 0.34 (< OR =4); TROPONIN I 0.06 NG/ML (< 0.10)
[2021-04-10 01:53] VITALS: BP 144/82
[2021-04-10] MEDS: ACETAMINOPHEN TAB 650MG DOSE (2X325MG) PO PRN ×4 (01:53→18:15)
[2021-04-10 04:10] VITALS: BP 130/70
[2021-04-10 05:23] LABS: HEMATOCRIT 33.8 % (42.0-52.0); HEMOGLOBIN 11.4 g/dl (13.5-17.5); MEAN CORPUSCULAR HEMOGLOBIN 28.6 pg (27.0-33.0); MEAN CORPUSCULAR HGB CONC 33.7 g/dl (32.0-36.5); MEAN CORPUSCULAR VOLUME 84.9 fl (80.0-96.0); PLATELET COUNT, AUTOMATED 193 10^3/uL (150-450); RED BLOOD COUNT 3.98 10^6/uL (4.30-6.10); WHITE BLOOD COUNT 15.6 10^3/uL (4.0-10.0)
[2021-04-10 05:55] LABS: ALBUMIN 2.5 GM/DL (3.2-5.2); ALT/SGPT 20 U/L (12-78); BILIRUBIN,TOTAL 0.4 MG/DL (0.2-1.0); BLOOD UREA NITROGEN 21 MG/DL (7-18); CALCIUM LEVEL 7.7 MG/DL (8.8-10.2); CARBON DIOXIDE LEVEL 25 MEQ/L (21-32); CHLORIDE LEVEL 103 MEQ/L (98-107); CK-MB VALUE MASS < 1.0 NG/ML (<3.6); CPK CREATINE PHOSPHOKINASE 332 U/L (39-308); CREATININE FOR GFR 1.41 MG/DL (0.70-1.30); GLOMERULAR FILTRATION RATE 52.2 (>42); GLUCOSE, FASTING 154 MG/DL (70-100); POTASSIUM SERUM 3.6 MEQ/L (3.5-5.1); SODIUM LEVEL 135 MEQ/L (136-145); TOTAL PROTEIN 6.9 GM/DL (6.4-8.2)
[2021-04-10] MEDS: NS 1,000 ML IV SCH ×2 (06:01→19:43)
[2021-04-10 08:00] VITALS: BP 164/72
[2021-04-10] MEDS: HumaLOG INSULIN (NovoLOG) PER UNIT SC SCH ×4 (08:42→21:20)
[2021-04-10] MEDS: SIMVASTATIN 40 MG TAB PO SCH (08:43)
[2021-04-10] MEDS: ASPIRIN 81MG ENTERIC TABLET PO SCH (08:43)
[2021-04-10] MEDS: LOSARTAN 50MG TABLET PO SCH (08:43)
[2021-04-10 08:59] LABS: ERYTHROCYTE SEDIMENTATION RATE 62 mm/hr (0-20)
[2021-04-10] MEDS ORDERED: AZITHROMYCIN INJ 500 MG, VIAL MATE ADAPTER 1 EACH in NS 250 ML IV SCH (09:00)
[2021-04-10] MEDS: VITAMIN D (CHOLECALCIFEROL) 400 INTERNATIONAL UNITS TAB PO SCH (10:33)
[2021-04-10] MEDS: DOXYCYCLINE HYCLATE 100 MG in D5W MINI-BAG PLUS 100 ML IV SCH ×2 (10:33→20:54)
[2021-04-10 12:00] VITALS: BP 161/72
--- NOTE | 2021-04-10 12:08 | IPNPDOC ---
Date Seen The patient was seen on 04/10/21. Progress Note SUBJECTIVE: Mr. Torres is lying in bed when I walked into the room this morning. He spiked a 103.6 fever this morning at 8:00 and was given tylenol which brought his temperature down to 100.7 by 14:00. He was covered in ice packs while I examined him to help decrease his body temperature. He states that he is concerned about his well being and is unsure of how he became ill because he is a "very active man" usually. We discussed the activities of his last week in detail. He had a teeth cleaning and two dental fillings on 04/02 without complications. He traveled to the "[facility]" last week and returned home before 04/06 when he ate a dinner at a restaurant in [facility] that consisted of fish and chips. After eating his meal he began feeling sick and was fatigued for the next 24 hours. He denies having chest pain, shortness of breath, nausea, vomiting, diarrhea, teeth rattling chills, or recent unexplainable weight loss. He admits to generalized body aches, myalgias, i ntermittent headache, and hearing loss. He denies seeing any rashes or bug bites on his skin and states that he did not go hiking or spend too much time outside while he was in [place]. His oxygen saturation is 94% on 1L NC. He does not use oxygen at home. OBJECTIVE PHYSICAL EXAMINATION: VITAL SIGNS: Please see below. GENERAL: A well nourished male laying on his hospital bed with eyes closed. He has approx 6 bags of ice surrounding his body and a wash cloth on his forehead. He is alert and oriented x 3. HEENT: Decreased hearing bilaterally, PERRLA, EOMI, normocephalic, atraumatic, trachea is midline, no lymphadenopathy or thyromegaly noted. Mucous membranes are pink and moist. CARDIOVASCULAR: regular rate and rhythm, no murmurs appreciated, pulses 2+ radial and dorsalis pedis. RESPIRATORY: Clear to auscultation bilaterally, normal inspiratory effort. No wheezes, rales, or rhonchi noted. ABDOMINAL: soft, nontender to deep palpation in all four quadrants and suprapubically, normal bowel sounds. EXTREMITIES: no edema appreciated PSYCHOLOGICAL: alert and oriented x 3 SKIN: no rashes, ulcerations, or bug bites visible. No ticks visualized in skin folds around abdomen and groin. No splinter hemorrhages noted on nails, no osler nodes or janeway lesions visualized on hands. LABORATORY DATA, IMAGING STUDIES, MICROBIOLOGY: Please see below. Head CT 04/09: No acute intracranial pathology. Other chronic findings, as above. CTA 04/09: Limited by respiratory motion. No obvious pulmonary embolus. Atelectasis/Early lower lobe consolidations (left greater than right). Abdomen/pelvis CT 04/09: impression: No acute abdominopelvic pathology appreciated. Chronic findings as above. Bibasilar atelectasis/early pneumonia. Chest x-ray 04/09: No acute cardiopulmonary process appreciated. Echocardiogram: ordered 04/09, results are pending DVT prophylaxis ordered?: mechanical prophylaxis and heparin ASSESSMENT AND PLAN: Mr. Torres is a 75 year old male with past medical history of Insulin dependent diabetes mellitus, hypertension, and hyperlipidemia who presents with fever of two days duration of unknown cause. PROBLEMS: Fever of unknown cause 2/2 pneumonia vs tick borne illness vs gastroenteritis vs unlikely dental abscess vs unlikely endocarditis -Patient tested negative for COVID at urgent care on 04/08/21 -Blood cultures show no growth after 24 hours -Respiratory panel negative -Gastrointestinal panel and sputum culture pending -Tick borne panel pcr pending -continue doxycycline Day [address] Shukla and ceftriaxone Day 2 -Monitor temperature and continue tylenol and ice packs prn -Will continue to monitor WBC: it has decreased to 15.8 from 16.2 yesterday -Procalcitonin 0.54, patient is on antibiotics. -CRP and ESR elevated, will trend CRP -Current temperature is 100.7 F Insulin dependent diabetes mellitus -continue sliding scale insulin Hypertension -stable 130/70 -continue home medications Hyperlipidemia -continue home medications DVT Prophylaxis: continue heparin DISPOSITION: Contacted Dr. Shukla about this patient. She advised we order a tick borne panel and start treating with Doxycycline instead of azithromycin. We will continue to monitor his fever and are awaiting the lab results. GME ATTESTATION My faculty preceptor for this patient encounter was physically present during the encounter and was fully available. All aspects of the patient interview, examination, medical decision making process, and medical care plan development were reviewed and approved by the faculty preceptor. The faculty preceptor is aware and concurs with the plan as stated in the body of this note and will attest to such by his/her cosignature. Attending Attestation: I saw and evaluated patient. I agree with the findings and plan of care as documented in the residents note. VS, I&O, 24H, Fishbone Vital Signs/I&O Vital Signs Date Time Temp Pulse Resp B/P (MAP) Pulse Ox O2 Delivery O2 Flow Rate FiO2 04/10/21 08:43 164/72 04/10/21 08:00 103.6 117 18 91 Nasal Cannula 1.0 I&O- Last 24 Hours up to 6 AM 04/10/21 05:59 Intake Total 1590 ml Balance 1590 ml Laboratory Data 24H LABS Laboratory Tests 2 04/09/21 16:48: Lactic Acid Followup at 4 Hours 1.2, Total Creatine Kinase 160, Creatine Kinase MB < 1.0, Creatine Kinase MB Relative Index 0.62, Troponin I 0.04, Procalcitonin 0.54 04/09/21 22:56: Total Creatine Kinase 296#, Creatine Kinase MB < 1.0, Creatine Kinase MB Relative Index 0.34, Troponin I 0.06# 04/09/21 23:04: Bedside Glucose (Misc Panel) 181H 04/10/21 02:59: Methicillin-Resist S.aureus DNA PCR NOT DETECTED 04/10/21 05:06: 04/10/21 05:07: Nucleated Red Blood Cells % (auto) 0.0, Erythrocyte Sedimentation Rate 62H, Anion Gap 7L, Glomerular Filtration Rate 52.2, Calcium Level 7.7#L, Total Bilirubin 0.4, Aspartate Amino Transf (AST/SGOT) 25, Alanine Aminotransferase (ALT/SGPT) 20, Alkaline Phosphatase 54, Total Creatine Kinase 332H, Creatine Kinase MB < 1.0, Creatine Kinase MB Relative Index 0.30, Troponin I 0.10#, C- Reactive Protein, Quantitative 18.70H, Total Protein 6.9, Albumin 2.5#L, Albumin/Globulin Ratio 0.6 CBC/BMP Laboratory Tests 04/10/21 05:07 Microbiology Microbiology 04/09/21 Blood Culture - Preliminary, Resulted No growth after 24 hours . All specim... 04/09/21 Respiratory Virus Panel (PCR) ([facility]) - Final, Complete 7/6/21 Blood Culture - Preliminary, Resulted No growth after 24 hours . All specim... DANYELLE JOHNSON DO Apr 10, 2021 12:08 JIL MCNAIR MD Apr 11, 2021 06:21
[2021-04-10 16:00] VITALS: BP 137/73
[2021-04-10] MEDS ORDERED: cefTRIAXone SOD 1 GM in D5W MINI-BAG PLUS 50 ML IV SCH (18:00)
[2021-04-10 20:00] VITALS: BP 123/56
--- NOTE | 2021-04-10 20:03 | ECGEPIP ---
[facility] - ED Test Date: 2021-04-09 Pat Name: RESHMA XIONG Department: Room: - Gender: Male Carbonizer: HC : 1945 Requested By: ROMANA BAXTER PA-C. Order Number: [id number] Reading MD: Vannesa Hogan Measurements Intervals [place] Rate: 114 P: 52 CT: 174 QRS: 25 QRSD: 92 T: 47 QT: 312 QTc: 430 Interpretive Statements Sinus tachycardia NSTTW abnormalities increased rate 05/01/17 Electronically Signed on 04-10-2021 20:03:42 EDT by Vannesa Hogan
[2021-04-10] MEDS: HEPARIN SOD (PORCINE) 5000UNITS/ML 1ML VIAL/SYRINGE SQ SCH (20:53)
[2021-04-11] VITALS (9 sets, daily range): BP systolic 129–172; BP diastolic 67–100
[2021-04-11] MEDS: ACETAMINOPHEN TAB 650MG DOSE (2X325MG) PO PRN ×4 (02:39→20:18)
[2021-04-11] MEDS: NS 1,000 ML IV SCH (07:01)
[2021-04-11] MEDS: ASPIRIN 81MG ENTERIC TABLET PO SCH (08:33)
[2021-04-11] MEDS: HumaLOG INSULIN (NovoLOG) PER UNIT SC SCH ×4 (08:33→21:00)
[2021-04-11] MEDS: VITAMIN D (CHOLECALCIFEROL) 400 INTERNATIONAL UNITS TAB PO SCH (08:34)
[2021-04-11] MEDS: LOSARTAN 50MG TABLET PO SCH (08:37)
[2021-04-11] MEDS: SIMVASTATIN 40 MG TAB PO SCH (08:38)
[2021-04-11] MEDS: HEPARIN SOD (PORCINE) 5000UNITS/ML 1ML VIAL/SYRINGE SQ SCH ×2 (08:38→20:19)
[2021-04-11 09:05] LABS: ALBUMIN 2.1 GM/DL (3.2-5.2); ALT/SGPT 41 U/L (12-78); BASO % 0.2 % (0.0-1.0); BILIRUBIN,TOTAL 0.3 MG/DL (0.2-1.0); BLOOD UREA NITROGEN 21 MG/DL (7-18); CALCIUM LEVEL 7.6 MG/DL (8.8-10.2); CARBON DIOXIDE LEVEL 24 MEQ/L (21-32); CHLORIDE LEVEL 108 MEQ/L (98-107); CREATININE FOR GFR 1.13 MG/DL (0.70-1.30); EOS % 0.2 % (0.0-3.0); GLOMERULAR FILTRATION RATE > 60.0 (>42); GLUCOSE, FASTING 124 MG/DL (70-100); HEMATOCRIT 32.2 % (42.0-52.0); HEMOGLOBIN 10.7 g/dl (13.5-17.5); LYMPH % 11.3 % (24.0-44.0); MEAN CORPUSCULAR HEMOGLOBIN 28.2 pg (27.0-33.0); MEAN CORPUSCULAR HGB CONC 33.2 g/dl (32.0-36.5); MEAN CORPUSCULAR VOLUME 84.7 fl (80.0-96.0); MONO # 0.6 10^3/uL (0.0-0.8); MONO % 7.1 % (2.0-8.0); NEUTROPHILS % 80.3 % (36.0-66.0); PLATELET COUNT, AUTOMATED 202 10^3/uL (150-450); POTASSIUM SERUM 3.7 MEQ/L (3.5-5.1); SODIUM LEVEL 140 MEQ/L (136-145); TOTAL PROTEIN 5.8 GM/DL (6.4-8.2); WHITE BLOOD COUNT 8.7 10^3/uL (4.0-10.0)
--- NOTE | 2021-04-11 10:24 | IPNPDOC ---
Date Seen The patient was seen on 04/11/21. Progress Note SUBJECTIVE: Mr. Torres is a pleasant 75 year old male lying in bed comfortably. He states that he feels about the same as he did yesterday. In the night he spiked a fever of 102.4 which she states was decreased brought down to 99.0 degrees with tylenol. He admits to having a mild headache and sore throat during the night that lasted for less than an hour. He does not currently have a headache or sore throat at this time. He was able to eat [place] and mashed potatoes last night for dinner and a full breakfast this morning without experiencing any nausea, vomiting, or diarrhea. He has a good support system that consists of his and son (Sofya.) that have come to visit him at the hospital during his stay. He denies chest pain, shortness of breath nausea, vomiting, constipation, diarrhea, abdominal pain, myalgias, body aches, or teeth rattling chills. He admits to feeling very fatigued and would like to sit in a chair when he eats his next meal so that he can get out of bed and move around. Current oxygen saturation is 93% on 1 L of oxygen nasal cannula. OBJECTIVE PHYSICAL EXAMINATION: VITAL SIGNS: Temperature is 98.1 F GENERAL: A well nourished male who is alert and oriented x 3. He is in a pleasant mood. HEENT: Normocephalic atraumatic. PERRLA, EOMI, no lymphadenopathy appreciated, mucous membranes moist and pink, no swelling or erythema noted in oral cavity. CARDIOVASCULAR: regular rate and rhythm, soft murmur heard in fifth intercostal space along the midclavicular line, pulses 2+ radial, posterior tibial, and dorsalis pedis. RESPIRATORY: Clear to auscultation bilaterally, normal inspiratory effort. No wheezes, rales, or rhonchi noted. ABDOMINAL: soft, nontender to deep palpation in all four quadrants and suprapubically, normal bowel sounds. EXTREMITIES: no edema appreciated, capillary refill <2 seconds PSYCHOLOGICAL: alert and oriented x 3 SKIN: no new rashes, ulcerations, or bug bites visible. Skin is moist, likely secondary to LABORATORY DATA, IMAGING STUDIES, MICROBIOLOGY: Please see below. Head CT 04/09: No acute intracranial pathology. Other chronic findings, as above. CTA 04/09: Limited by respiratory motion. No obvious pulmonary embolus. Ate lectasis/Early lower lobe consolidations (left greater than right). Abdomen/pelvis CT 04/09: impression: No acute abdominopelvic pathology appreciated. Chronic findings as above. Bibasilar atelectasis/early pneumonia. Chest x-ray 04/09: No acute cardiopulmonary process appreciated. Echocardiogram: 04/10/21 Impression: 1. Normal global left ventricular systolic function. There are some features of grade 1 left ventricular diastolic dysfunction manifested by abnormal relaxation. 2. Aortic valve sclerosis with mild aortic stenosis. No aortic regurgitation. 3. Mitral annulus calcification with trace mitral regurgitation. 4. The left atrium is mildly enlarged, probably related to the underlying left ventricular diastolic dysfunction. 5. No vegetations seen in this transthoracic echocardiogram. DVT prophylaxis ordered?: mechanical prophylaxis and heparin ASSESSMENT AND PLAN: Mr. Torres is a 75 year old male with past medical history of Insulin dependent diabetes mellitus, hypertension, and hyperlipidemia who presents with fever of two days duration of unknown cause. PROBLEMS: #Fever of unknown cause 2/2 pneumonia vs tick borne illness vs gastroenteritis vs unlikely dental abscess vs unlikely endocarditis -Patient tested negative for COVID at urgent care on 04/08/21 -Blood cultures show no growth after 48 hours -Respiratory panel negative -Gastrointestinal panel and sputum culture pending -Tick borne panel pcr pending -continue doxycycline Day [address] Shukla We appreciate her input on this patient -D/c ceftriaxone -continue with tylenol and ice packs to decrease fever as needed. -WBC decreased markedly overnight to 8.7 -CRP is downtrending -No vegetations seen on echocardiogram #Insulin dependent diabetes mellitus -continue sliding scale insulin #Hypertension -stable 129/67 -continue home medications #Hyperlipidemia -continue home medications DVT Prophylaxis: continue heparin DISPOSITION: We are pleased to see that Mr. Torres is clinically improving. We have consulted Dr. Shukla on this patient and will continue doxycycline. His GI panel and tick borne illness panel results are still pending. GME ATTESTATION My faculty preceptor for this patient encounter was physically present during the encounter and was fully available. All aspects of the patient interview, examination, medical decision making process, and medical care plan development were reviewed and approved by the faculty preceptor. The faculty preceptor is aware and concurs with the plan as stated in the body of this note and will attest to such by his/her cosignature. Attending Attestation: I saw and evaluated patient. I agree with the findings and plan of care as documented in the residents note. VS, I&O, 24H, Fishbone Vital Signs/I&O Vital Signs Date Time Temp Pulse Resp B/P (MAP) Pulse Ox O2 Delivery O2 Flow Rate FiO2 04/11/21 08:37 146/70 04/11/21 07:42 98.1 100 18 91 Nasal Cannula 1.0 I&O- Last 24 Hours up to 6 AM 04/11/21 06:00 Intake Total 1950 ml Output Total 925 ml Balance 1025 ml Laboratory Data 24H LABS Laboratory Tests 2 04/11/21 05:32: Immature Granulocyte % (Auto) 0.9, Neutrophils (%) (Auto) 80.3H, Lymphocytes (%) (Auto) 11.3L, Monocytes (%) (Auto) 7.1, Eosinophils (%) (Auto) 0.2, Basophils (%) (Auto) 0.2, Neutrophils # (Auto) 7.0, Lymphocytes # (Auto) 1.0L, Monocytes # (Auto) 0.6, Eosinophils # (Auto) 0.0, Basophils # (Auto) 0.0, Nucleated Red Blood Cells % (auto) 0.0, Anion Gap 8, Glomerular Filtration Rate > 60.0, Calcium Level 7.6L, Total Bilirubin 0.3, Aspartate Amino Transf (AST/SGOT) 48H, Alanine Aminotransferase (ALT/SGPT) 41, Alkaline Phosphatase 53, C-Reactive Protein, Quantitative 16.50H, Total Protein 5.8L, Albumin 2.1L, Albumin/Globulin Ratio 0.6 04/11/21 07:16: Bedside Glucose (Misc Panel) 144H CBC/BMP Laboratory Tests 04/11/21 05:32 Microbiology Microbiology 04/09/21 Blood Culture - Preliminary, Resulted No growth after 24 hours . All specim... 04/09/21 Respiratory Virus Panel (PCR) ([facility]) - Final, Complete 04/09/21 Blood Culture - Preliminary, Resulted No growth after 24 hours . All specim... DANYELLE JOHNSON DO Apr 11, 2021 10:24 JIL MCNAIR MD Apr 13, 2021 06:27
[2021-04-11] MEDS: DOXYCYCLINE HYCLATE 100 MG in D5W MINI-BAG PLUS 100 ML IV SCH (10:32)
--- NOTE | 2021-04-11 11:10 | ECHO ---
ECHOCARDIOGRAM DATE OF PROCEDURE: 04/10/2021 Age: Gender: Height: 173 cm Weight: 94 kg REFERRING PROVIDER: Dr. Jean Marie Horner. PATIENT LOCATION: Room 3215. REASON FOR THE TESTING: Sepsis, fever. 2D MEASUREMENTS: IVS 1.6 cm LV 4.0 cm LVPW 1.5 cm LA 4.1 cm Aorta 3.6 cm IVC 1.6 cm DOPPLER MEASUREMENT Peak velocity across the aortic valve 2.2 m/s Peak velocity across the LVOT 1.1 m/s Peak gradient across the aortic valve 20 mmHg Mean gradient across the aortic valve 13 mmHg Mitral E 1.1 Mitral A 1.1 with a ratio of 1.0 2D COMMENTS: 1. Moderately increased left ventricular wall thickness with normal left ventricular size and normal global left ventricular systolic function. The estimated left ventricular systolic ejection fraction is 60 to 65%. 2. Mildly enlarged left atrium. Normal right atrium and right ventricle. 3. The atrial septum appeared to be normal without evidence of defect or shunt. 4. Normal aortic root. 5. No pericardial effusion seen. 6. Calcified aortic valve with mildly restricted leaflet motion. Mildly calcified mitral annulus with normal anterior mitral valve leaflet motion. Normal tricuspid valve. The pulmonic valve and proximal pulmonary artery branches were not well visualized. 7. The inferior vena cava was normal in size, central venous pressure is most likely normal. DOPPLER: It detects trace mitral regurgitation. Abnormal relaxation pattern was noted across the mitral valve annulus consistent with features of grade 1 left ventricular diastolic dysfunction. IMPRESSION: 1. Normal global left ventricular systolic function. There are some features of grade 1 left ventricular diastolic dysfunction manifested by abnormal relaxation. 2. Aortic valve sclerosis with mild aortic stenosis. No aortic regurgitation. 3. Mitral annulus calcification with trace mitral regurgitation. 4. The left atrium is mildly enlarged, probably related to the underlying left ventricular diastolic dysfunction. 5. No vegetations seen in this transthoracic echocardiogram.
[2021-04-11] MEDS ORDERED: hydrALAZINE 20MG/ML 1ML VIAL (J0360 PER 20MG) IV ONE (20:15)
[2021-04-11] MEDS ORDERED: **hydrALAZINE HCL** 25 MG TAB PO ONE (20:25)
[2021-04-12] MEDS: LOSARTAN 50MG TABLET PO SCH (05:56)
[2021-04-12 06:00] VITALS: BP 173/101
[2021-04-12 06:42] LABS: BASO % 0.5 % (0.0-1.0); EOS # 0.1 10^3/uL (0.0-0.5); EOS % 1.2 % (0.0-3.0); HEMATOCRIT 33.4 % (42.0-52.0); HEMOGLOBIN 11.2 g/dl (13.5-17.5); LYMPH # 1.6 10^3/uL (1.5-5.0); LYMPH % 19.4 % (24.0-44.0); MEAN CORPUSCULAR HEMOGLOBIN 27.7 pg (27.0-33.0); MEAN CORPUSCULAR HGB CONC 33.5 g/dl (32.0-36.5); MEAN CORPUSCULAR VOLUME 82.5 fl (80.0-96.0); MONO # 0.7 10^3/uL (0.0-0.8); MONO % 8.4 % (2.0-8.0); NEUTROPHILS # 5.6 10^3/uL (1.5-8.5); NEUTROPHILS % 69.9 % (36.0-66.0); PLATELET COUNT, AUTOMATED 228 10^3/uL (150-450); RED BLOOD COUNT 4.05 10^6/uL (4.30-6.10)
[2021-04-12 07:03] LABS: ALBUMIN 2.5 GM/DL (3.2-5.2); ALT/SGPT 112 U/L (12-78); BILIRUBIN,TOTAL 0.4 MG/DL (0.2-1.0); BLOOD UREA NITROGEN 17 MG/DL (7-18); C REACTIVE PROTEIN QUANTITATIV 9.52 MG/DL (0.00-0.30); CALCIUM LEVEL 7.7 MG/DL (8.8-10.2); CARBON DIOXIDE LEVEL 25 MEQ/L (21-32); CHLORIDE LEVEL 108 MEQ/L (98-107); CREATININE FOR GFR 1.03 MG/DL (0.70-1.30); GLOMERULAR FILTRATION RATE > 60.0 (>42); GLUCOSE, FASTING 177 MG/DL (70-100); POTASSIUM SERUM 3.7 MEQ/L (3.5-5.1); SODIUM LEVEL 140 MEQ/L (136-145); TOTAL PROTEIN 6.2 GM/DL (6.4-8.2)
--- NOTE | 2021-04-12 07:08 | CR ---
CONSULTATION DATE: 04/11/2021 REQUESTING PHYSICIAN: Jean Marie Horner M.D. REASON FOR CONSULTATION: Evaluation of fever. HISTORY OF PRESENT ILLNESS: Mr. Torres is a pleasant 75-year-old gentleman who presented to [facility] on 04/09 with a two day history of fevers. The patient went to an urgent care and had a COVID-19 test, which was negative. He did not have any associated cough or shortness of breath. No nausea, vomiting, or diarrhea. No abdominal pain. He had eaten fish and chips the night prior to being sick and did not like the taste of it, but he did not get sick with diarrhea or abdominal pain. He had a dental procedure about a week prior to admission with some cleaning and fillings, but no abscess. He denied any chest pain, shortness of breath, cough, headache, rashes, or tick bites. He has been in [place] a couple of weeks ago, he visited [facility] with his who did not get sick. They were in [place] visiting their son who was a physician. They did not go hiking or walking on forested areas. PAST MEDICAL HISTORY: 1. Insulin-dependent diabetes. 2. Hypertension. 3. Hyperlipidemia. 4. Obesity. ALLERGIES: No known drug allergies. MEDICATIONS: 1. Hydralazine 25 mg p.o. x1 dose and 10 mg IV p.r.n. 2. Ceftriaxone 1 gram IV q. 24 hours. 3. Doxycycline 100 mg IV q. 12 hours currently day #2. 4. Zithromax 500 mg IV x1 dose on 04/10 was discontinued. 5. Simvastatin 80 mg p.o. daily. 6. Losartan 100 mg p.o. daily. 7. Vitamin D 800 units daily. 8. Aspirin 81 mg daily. 9. Insulin sliding scale. 10. Tylenol 600 mg p.o. q. 4 p.r.n. 11. Zofran 4 mg IV q. 6 p.r.n. SOCIAL HISTORY: He is . He lives with his . He has a son who is a physician. He does not smoke. He drinks socially. REVIEW OF SYSTEMS: He had only a fever. No upper or lower extremity weakness. No rashes and no joint pain. No headache or neck stiffness. No Winslow's palsy. LABORATORY DATA: White count on admission was 6.2 and today it was 8.7, hemoglobin 10.7, hematocrit 32, platelets 202,000, neutrophils 80%, lymphocytes 11%, monocytes 7%. ESR 62. Sodium 140, potassium 3.7, chloride 108, bicarb 24, BUN 21, creatinine 1.13, glucose 124, calcium 7.6, AST 48, ALT 41, alkaline phosphatase 53. CPK 332. CRP 16.5. Total protein 5.8, albumin 2.1. Procalcitonin 0.54. MRSA screen was not detected. Lyme and tick borne panel is pending. Urine Legionella antigen and pneumococcal antigen pending. Urinalysis had +2 blood, +3 glucose, 26 red cells. Blood cultures two sets were no growth after 48 hours. Respiratory panel was negative. IMAGING DATA: Head CT negative. Angiography CT showed no acute findings other than atelectasis and a questionable early low lesions, left greater than right, but no pulmonary embolus is emanated by respiratory motion. CT abdomen was negative. Chest x-ray on 04/09 portable AP was normal. PHYSICAL EXAMINATION: VITAL SIGNS: Temperature 100, pulse 88, respirations 22, O2 sat 96% on room air. T-max on admission was 103.6. NECK: Supple. No stiffness and no adenopathy. HEENT: Oropharynx is clear with no lesions. HEART: Normal S1, S2. No murmurs, rubs, or gallops. LUNGS: Crackles both ways about a quarter way up bilaterally. Dry and fine. No wheezes or rhonchi. ABDOMEN: Soft and nontender with no hepatosplenomegaly. Bowel sounds normal. BACK: No CVA or lumbosacral spine tenderness. EXTREMITIES: No clubbing, cyanosis, or edema. No calf tenderness. +2 dorsalis pedis pulses. NEUROLOGIC: Normal. IMPRESSION: This is a 75-year-old gentleman with a recent travel to [place] admitted with a fever and leukocytosis with no other associated symptoms. His lab only abnormality is elevated white count, CRP, and slight elevation of AST. Even though he does not recall a tick bite, he may have a tick borne disease such as anaplasma or Ehrlichia Lyme disease or [place] Spotted fever. Viral illness is also in the differential such as EBV or CMV. I doubt he has a bacterial infection since CT abdomen, chest and pelvis were pretty benign. I doubt he has pneumonia since he does not have a cough or shortness of breath. PLAN: Discontinue IV ceftriaxone. Switch doxycycline from IV to p.o. 100 mg b.i.d. until tick borne panel is available. If the patient is afebrile tomorrow, he can be discharged home. That also would cover for questionable pneumonia, although my suspicion of that being very unlikely. I did order urine Legionella antigen and pneumococcal antigen, which was collected tonight. The case has been discussed with Dr. Ricks covering resident. I also discussed the case with his son, Dr. Torres, who is an coconut cooker in [place] and was at the bedside. I also recommended IV fluids be discontinued as he has some component of pulmonary edema causing his mild hypoxia. Edited: radha/dano/magali 04/12/2021 0712 MTDD
[2021-04-12 08:10] VITALS: BP 178/100
[2021-04-12] MEDS: HEPARIN SOD (PORCINE) 5000UNITS/ML 1ML VIAL/SYRINGE SQ SCH (08:12)
[2021-04-12] MEDS: SIMVASTATIN 40 MG TAB PO SCH (08:12)
[2021-04-12] MEDS: VITAMIN D (CHOLECALCIFEROL) 400 INTERNATIONAL UNITS TAB PO SCH (08:13)
[2021-04-12] MEDS: ASPIRIN 81MG ENTERIC TABLET PO SCH (08:13)
[2021-04-12] MEDS: HumaLOG INSULIN (NovoLOG) PER UNIT SC SCH ×2 (08:15→12:14)
[2021-04-12] MEDS ORDERED: **hydrALAZINE HCL** 25 MG TAB PO ONE (09:00)
[2021-04-12] MEDS ORDERED: DOXYCYCLINE HYCLATE 100MG TABLET PO SCH (09:00)
[2021-04-12 09:48] VITALS: BP 173/99
[2021-04-12 11:05] VITALS: BP 148/98
[2021-04-12] MEDS ORDERED: DOXY100T PO (11:50)
[2021-04-12 14:00] VITALS: BP 172/97
[2021-04-12] MEDS ORDERED: AMLO1TAB24 PO (14:39)
[2021-04-12] MEDS ORDERED: amLODIPine 5 MG TAB PO ONE (15:00)
[2021-04-12 15:16] VITALS: BP 174/99
--- NOTE | 2021-04-12 19:32 | DS.PDOC ---
Discharge Summary General Date of Admission Apr 09, 2021 at 17:34 Date of Discharge April 12, 2021 Attending Physician: JIL MCNAIR MD Discharge Summary PROCEDURES PERFORMED DURING STAY: None. ADMITTING DIAGNOSES: Fever of unknown origin Insulin-dependent diabetes mellitus Hypertension Dyslipidemia DISCHARGE DIAGNOSES: Insulin-dependent diabetes mellitus Hypertension Dyslipidemia COMPLICATIONS/CHIEF COMPLAINT: FEVER. HISTORY OF PRESENT ILLNESS: 75-year-old male patient who presented to the ED with 2-day history of fevers, and chills. With T-max of 103 at home. He also reports having headaches. He has been having this fever since couple of days and got Covid tested in the urgent care which was negative. He also reports having a dental procedure failing and cleaning done a week ago. He denies having any chest pain, shortness of breath, cough, abdominal pain, nausea vomiting diarrhea, weakness on presentation. Patient was admitted to the hospital for further management and evaluation. HOSPITAL COURSE: Upon admission to the hospital patient was started on broad-spectrum antibiotics initially and did get a complete work-up for blood cultures, respiratory panel, GI panel and sputum cultures, tickborne illnesses. He continues to have fevers for couple of nights. Which gradually improved. Upon presentation patient also has leukocytosis and was gradually improved. During the hospital stay he will did get antibiotics for committee acquired pneumonia ceftriaxone and doxycycline. However later he was switched to p.o. doxycycline and was decided to be discharged after no fevers for 24 hours. DISCHARGE MEDICATIONS: Please see below. ALLERGIES: Please see below. PHYSICAL EXAMINATION ON DISCHARGE: VITAL SIGNS: Please see below. GENERAL: A well nourished male who is alert and oriented x 3. He is in a pleasant mood. HEENT: Normocephalic atraumatic. PERRLA, EOMI, no lymphadenopathy appreciated, mucous membranes moist and pink, no swelling or erythema noted in oral cavity. CARDIOVASCULAR: regular rate and rhythm, soft murmur heard in fifth intercostal space along the midclavicular line, pulses 2+ radial, posterior tibial, and dorsalis pedis. RESPIRATORY: Clear to auscultation bilaterally, normal inspiratory effort. No wheezes, rales, or rhonchi noted. ABDOMINAL: soft, nontender to deep palpation in all four quadrants and suprapubically, normal bowel sounds. EXTREMITIES: no edema appreciated, capillary refill <2 seconds PSYCHOLOGICAL: alert and oriented x 3 SKIN: no new rashes, ulcerations, or bug bites visible. LABORATORY DATA: Please see below. IMAGING: Head CT 04/09: No acute intracranial pathology. Other chronic findings, as above. CTA 04/09: Limited by respiratory motion. No obvious pulmonary embolus. Atelectasis/Early lower lobe consolidations (left greater than right). Abdomen/pelvis CT 04/09: impression: No acute abdominopelvic pathology appreciated. Chronic findings as above. Bibasilar atelectasis/early pneumonia. Chest x-ray 04/09: No acute cardiopulmonary process appreciated. Echocardiogram: 04/10/21 Impression: 1. Normal global left ventricular systolic function. There are some features of grade 1 left ventricular diastolic dysfunction manifested by abnormal relaxation. 2. Aortic valve sclerosis with mild aortic stenosis. No aortic regurgitation. 3. Mitral annulus calcification with trace mitral regurgitation. 4. The left atrium is mildly enlarged, probably related to the underlying left ventricular diastolic dysfunction. 5. No vegetations seen in this transthoracic echocardiogram. PROGNOSIS: Good ACTIVITY: As tolerated. DIET: As tolerated, consistent carbohydrate DISCHARGE PLAN: Home DISPOSITION: 01 Home, Self-Care. DISCHARGE INSTRUCTIONS: -Continue taking doxycycline twice a day for 7 days orally. Please take doxycycline with food. Please avoid being out in sun directly. -Follow-up with PCP in 3 to 5 days. -Follow-up with infectious disease Dr. Iqbal in 1-2 weeks, further results of all the test done during the hospitalization stay. ITEMS TO FOLLOWUP ON ON OUTPATIENT: Follow-up with PCP in 3 to 5 days. -Follow-up with infectious disease Dr. Iqbal in 1-2 weeks, further results of all the test done during the hospitalization stay. DISCHARGE CONDITION: Stable. TIME SPENT ON DISCHARGE: 35 minutes. Attending Attestation: I saw and evaluated patient. I agree with the findings and plan of care as documented in the residents note. Vital Signs/I&Os Vital Signs Date Time Temp Pulse Resp B/P (MAP) Pulse Ox O2 Delivery O2 Flow Rate FiO2 04/12/21 15:16 103 174/99 04/12/21 14:00 98.9 18 93 Room Air 04/11/21 16:40 1.0 I&O- Last 24 Hours up to 6 AM 04/12/21 06:00 Intake Total 1290 ml Output Total 1100 ml Balance 190 ml Laboratory Data Labs 24H Laboratory Tests 2 04/11/21 20:05: 04/12/21 05:52: Immature Granulocyte % (Auto) 0.6, Neutrophils (%) (Auto) 69.9H, Lymphocytes (%) (Auto) 19.4L, Monocytes (%) (Auto) 8.4H, Eosinophils (%) (Auto) 1.2, Basophils (%) (Auto) 0.5, Neutrophils # (Auto) 5.6, Lymphocytes # (Auto) 1.6, Monocytes # (Auto) 0.7, Eosinophils # (Auto) 0.1, Basophils # (Auto) 0.0, Nucleated Red Blood Cells % (auto) 0.0, Anion Gap 7L, Glomerular Filtration Rate > 60.0, Calcium Level 7.7L, Total Bilirubin 0.4, Aspartate Amino Transf (AST/SGOT) 95H, Alanine Aminotransferase (ALT/SGPT) 112H, Alkaline Phosphatase 81, C-Reactive Protein, Quantitative 9.52H, Total Protein 6.2L, Albumin 2.5L, Albumin/Globulin Ratio 0.7 CBC/BMP Laboratory Tests 04/12/21 05:52 Microbiology Microbiology 04/10/21 Gastrointestinal Tract Panel (PCR) - Final, Complete 04/09/21 Blood Culture - Preliminary, Resulted No Growth after 72 hours. All specime... 04/09/21 Respiratory Virus Panel (PCR) ([facility]) - Final, Complete 04/09/21 Blood Culture - Preliminary, Resulted No Growth after 72 hours. All specime... Discharge Medications Scheduled Amlodipine Besylate (Amlodipine Besylate) 5 Mg Tablet, 5 MG PO DAILY Aspirin (Aspirin EC) 81 Mg Tablet.dr, 81 MG PO DAILY, (Reported) Cholecalciferol (Vitamin D3) (Vitamin D-400) 10 Mcg Tablet, 800 UNITS PO DAILY, (Reported) Doxycycline Hyclate (Doxycycline Hyclate) 100 Mg Tablet, 100 MG PO BID Take 1 tablet by mouth twice a day for 7 days. Insulin Glargine (Lantus) 1 Units/0.01 Ml Susp, 40 UNITS SC DAILY, (Reported) Losartan Potassium (Losartan Potassium) 100 Mg Tab, 100 MG PO DAILY, (Reported) Metformin HCl (Metformin HCl) 1,000 Mg Tab, 1,000 MG PO BID, (Reported) Simvastatin (Zocor) 80 Mg Tablet, 80 MG PO DAILY, (Reported) Allergies Coded Allergies: No Known Allergies (Unverified , 04/30/17) Ken Michelle MD Apr 12, 2021 19:31 JIL MCNAIR MD Apr 13, 2021 06:35
[2021-04-15 16:08] LABS: Lyme Disease IgG/IgM Antibodie <0.91 ISR (0.00-0.90); Lyme Disease IgM Ab Quantitati <0.80 index (0.00-0.79)
== END 2021-04-12 15:20 | disposition home or self-care (01) | DRG 864 ==
LOC: M ED 08:51 → M ED INP 17:34 → M PCU 22:35 → M MS5PR 04-11 21:42
PROVIDERS: ADMIT Internal Medicine; ATTEND Internal Medicine
DX: R50.9 Fever, unspecified (principal); E11.9 Type 2 diabetes mellitus without complications; I10 Essential (primary) hypertension; E78.5 Hyperlipidemia, unspecified; Z79.4 Long term (current) use of insulin; R51.9 Headache, unspecified; Z79.899 Other long term (current) drug therapy; Z79.82 Long term (current) use of aspirin; E66.9 Obesity, unspecified

== ENCOUNTER → 2021-04-25 | Outpatient (REF) | payer MEDICARE, OTHER ==
[~2021-04-25] MED LIST changes: +AMLO1TAB25 PO; +ASPI81TA26 PO; +CHLO125TA PO; +D-40TAB2 PO; +DOXY100T PO; +LANTINJ4 SC; +LOSA100T45 PO; -LOSA100T50 PO; +ROSU40TA4 PO; +VALS1TAB68 PO; +ZOCO80TA PO
== END ==
LOC: M LAB REF 11:18
PROVIDERS: ATTEND Physician Assistant Medical
DX: R30.0 Dysuria (principal)
CPT/HCPCS: 87086; G0463

== ENCOUNTER 2021-11-15 04:27 | Inpatient (IN) | payer MEDICARE, OTHER ==
[~2021-11-15] VITALS: Ht 170.2 cm; Wt 95.0 kg
[~2021-11-15 04:27] MED LIST changes: -AMLO1TAB25 PO; -CHLO125TA PO; -LANTINJ4 SC; -ROSU40TA4 PO; -VALS1TAB68 PO
[2021-11-15] MEDS ORDERED: LANTINJ4 SC (04:45)
[2021-11-15] MEDS ORDERED: ROSU40TA4 PO (04:45)
[2021-11-15 05:51] LABS: BASO # 0.1 10^3/uL (0.0-0.2); BASO % 0.8 % (0.0-1.0); EOS # 0.2 10^3/uL (0.0-0.5); EOS % 1.7 % (0.0-3.0); HEMATOCRIT 37.4 % (42.0-52.0); HEMOGLOBIN 12.6 g/dl (13.5-17.5); LYMPH # 2.1 10^3/uL (1.5-5.0); LYMPH % 24.8 % (24.0-44.0); MEAN CORPUSCULAR HEMOGLOBIN 28.3 pg (27.0-33.0); MEAN CORPUSCULAR HGB CONC 33.7 g/dl (32.0-36.5); MONO # 0.6 10^3/uL (0.0-0.8); MONO % 6.9 % (2.0-8.0); NEUTROPHILS # 5.7 10^3/uL (1.5-8.5); NEUTROPHILS % 65.5 % (36.0-66.0); PLATELET COUNT, AUTOMATED 235 10^3/uL (150-450); RED BLOOD COUNT 4.45 10^6/uL (4.30-6.10); WHITE BLOOD COUNT 8.6 10^3/uL (4.0-10.0)
[2021-11-15 06:07] LABS: ALBUMIN 3.6 GM/DL (3.2-5.2); BILIRUBIN,DIRECT 0.2 MG/DL (0.0-0.2); BILIRUBIN,TOTAL 0.4 MG/DL (0.2-1.0); CALCIUM LEVEL 9.3 MG/DL (8.8-10.2); CREATININE FOR GFR 1.29 MG/DL (0.70-1.30); GLOMERULAR FILTRATION RATE 57.6 (>42); TOTAL PROTEIN 7.6 GM/DL (6.4-8.2)
[2021-11-15 06:12] LABS: CK-MB VALUE MASS 4.6 NG/ML (<3.6); MB/CK RELATIVE INDEX 2.82 (< OR =4)
[2021-11-15] MEDS ORDERED: LABETALOL 100MG/20ML VIAL IV STA ×3 (06:25→14:42)
[2021-11-15 06:52] LABS: APPEARANCE, URINE CLEAR (CLEAR); BACTERIA, URINE AUTO NEGATIVE (NEGATIVE); BILIRUBIN, URINE AUTO NEGATIVE (NEGATIVE); BLOOD, URINE BLOOD NEGATIVE (NEGATIVE); COLOR, URINE STRAW (YELLOW); GLUCOSE, URINE (UA) AUTO 3+ mg/dL (NEGATIVE); KETONE, URINE AUTO NEGATIVE (NEGATIVE); LEUKOCYTE ESTERASE, URINE AUTO NEGATIVE (NEGATIVE); NITRITE, URINE AUTO NEGATIVE (NEGATIVE); PROTEIN, URINE AUTO NEGATIVE (NEGATIVE); RBC, URINE AUTO 1 /HPF (0-3); SPECIFIC GRAVITY URINE AUTO 1.005 (1.002-1.035); SQUAMOUS EPITHELIAL CELL UR AU 0 /HPF (0-6); UROBILINOGEN, URINE AUTO 0.2 mg/dL (0.0-2.0); WBC, URINE AUTO 1 /HPF (0-3)
[2021-11-15 06:56] LABS: CK-MB VALUE MASS 4.6 NG/ML (<3.6); MB/CK RELATIVE INDEX 2.99 (< OR =4)
[2021-11-15] MEDS ORDERED: hydrALAZINE 20MG/ML 1ML VIAL (J0360 PER 20MG) IV ONE (07:55)
[2021-11-15] MEDS: ENOXAPARIN 40MG/0.4ML SYRINGE (J1650 PER 10MG) SC SCH (09:00)
[2021-11-15] MEDS ORDERED: CHLORTHALIDONE 12.5MG PER 1/2 TABLET PO ONE (11:15)
[2021-11-15] MEDS ORDERED: LABETALOL 100MG TAB PO ONE (14:45)
[2021-11-15] MEDS ORDERED: ONDANSETRON 4MG/2ML VIAL IV ONE (14:50)
[2021-11-15 15:41] LABS: RSV AMPLIFICATION NEGATIVE (NEGATIVE)
[2021-11-15] MEDS ORDERED: DEXTROSE 50% 50 ML SYRINGE IV PRN (15:45)
[2021-11-15] MEDS ORDERED: LABETALOL 100MG/20ML VIAL IV PRN ×2 (15:45→16:25)
[2021-11-15] MEDS ORDERED: GLUCAGON INJ 1MG VIAL SC PRN (15:45)
[2021-11-15] MEDS ORDERED: ACETAMINOPHEN TAB 650MG DOSE (2X325MG) PO PRN (15:45)
[2021-11-15] MEDS ORDERED: GLUCOSE 4GM CHEW TABLET PO PRN (15:45)
[2021-11-15] MEDS ORDERED: HOME MED LIST COMPLETE! XX SCH (16:05)
[2021-11-15] MEDS: HumaLOG INSULIN (NovoLOG) PER UNIT SC SCH ×2 (18:25→20:53)
[2021-11-15 23:25] VITALS: BP 143/84
[2021-11-16] VITALS (7 sets, daily range): BP systolic 139–182; BP diastolic 72–94
[2021-11-16 07:06] LABS: HEMATOCRIT 37.6 % (42.0-52.0); HEMOGLOBIN 12.6 g/dl (13.5-17.5); MEAN CORPUSCULAR HEMOGLOBIN 28.3 pg (27.0-33.0); MEAN CORPUSCULAR HGB CONC 33.5 g/dl (32.0-36.5); MEAN CORPUSCULAR VOLUME 84.3 fl (80.0-96.0); PLATELET COUNT, AUTOMATED 248 10^3/uL (150-450); RED BLOOD COUNT 4.46 10^6/uL (4.30-6.10)
[2021-11-16 07:35] LABS: BLOOD UREA NITROGEN 18 MG/DL (7-18); CALCIUM LEVEL 9.3 MG/DL (8.8-10.2); CARBON DIOXIDE LEVEL 24 MEQ/L (21-32); CHLORIDE LEVEL 107 MEQ/L (98-107); CREATININE FOR GFR 1.17 MG/DL (0.70-1.30); GLOMERULAR FILTRATION RATE > 60.0 (>42); GLUCOSE, FASTING 209 MG/DL (70-100); MAGNESIUM LEVEL 1.9 MG/DL (1.8-2.4); SODIUM LEVEL 141 MEQ/L (136-145)
[2021-11-16] MEDS ORDERED: amLODIPine 5 MG TAB PO SCH (09:00)
[2021-11-16] MEDS: ROSUVASTATIN 10 MG TAB (CRESTOR) PO SCH (10:10)
[2021-11-16] MEDS: ASPIRIN 81MG ENTERIC TABLET PO SCH (10:10)
[2021-11-16] MEDS: VALSARTAN 80 MG TAB (DIOVAN) PO SCH (10:10)
[2021-11-16] MEDS: LEVEMIR (INSULIN DETEMIR) 1 UNITS/0.01ML SC SCH (10:11)
[2021-11-16] MEDS: HumaLOG INSULIN (NovoLOG) PER UNIT SC SCH ×4 (10:11→20:37)
[2021-11-16] MEDS: ENOXAPARIN 40MG/0.4ML SYRINGE (J1650 PER 10MG) SC SCH (10:11)
[2021-11-16] MEDS ORDERED: amLODIPine 5 MG TAB PO ONE (14:30)
[2021-11-17] VITALS (7 sets, daily range): BP systolic 120–180; BP diastolic 62–90
[2021-11-17] MEDS: ENOXAPARIN 40MG/0.4ML SYRINGE (J1650 PER 10MG) SC SCH (09:25)
[2021-11-17] MEDS: LEVEMIR (INSULIN DETEMIR) 1 UNITS/0.01ML SC SCH (09:25)
[2021-11-17] MEDS: VALSARTAN 80 MG TAB (DIOVAN) PO SCH (09:25)
[2021-11-17] MEDS: ASPIRIN 81MG ENTERIC TABLET PO SCH (09:25)
[2021-11-17] MEDS: ROSUVASTATIN 10 MG TAB (CRESTOR) PO SCH (09:25)
[2021-11-17] MEDS: HumaLOG INSULIN (NovoLOG) PER UNIT SC SCH ×3 (09:26→17:11)
[2021-11-17] MEDS ORDERED: PILL CUTTER 1 EACH XX PRN (12:45)
[2021-11-17] MEDS ORDERED: CHLORTHALIDONE 25 MG TAB PO ONE (14:00)
[2021-11-17] MEDS ORDERED: CHLO125TA PO (16:14)
[2021-11-17] MEDS ORDERED: VALS1TAB68 PO (16:14)
[2021-11-17] MEDS ORDERED: AMLO1TAB25 PO (16:14)
[2021-11-18] MEDS ORDERED: CHLORTHALIDONE 12.5MG PER 1/2 TABLET PO SCH (09:00)
== END 2021-11-17 17:35 | disposition home or self-care (01) | DRG 305 ==
LOC: M ED 04:27 → M ED INP 15:52 → ENRESERV 22:33 → M PCU 23:26
PROVIDERS: ADMIT Family Medicine; ATTEND Family Medicine
DX: I16.0 Hypertensive urgency (principal); E11.9 Type 2 diabetes mellitus without complications; E66.9 Obesity, unspecified; E78.5 Hyperlipidemia, unspecified; I10 Essential (primary) hypertension; Z79.82 Long term (current) use of aspirin; Z79.899 Other long term (current) drug therapy; Z79.4 Long term (current) use of insulin

== ENCOUNTER 2024-02-15 08:57 | Day surgery (SDC) | payer OTHER, MEDICARE ==
[~2024-02-15] VITALS: Ht 170.2 cm; Wt 94.3 kg
[~2024-02-15 08:57] MED LIST changes: +AMLO1TAB25 PO; +CHLO125TA PO; +LANTINJ4 SC; -LOSA100T45 PO; +LOSA100T46 PO; +LR 1,000 ML IV SCH; +MIDAZOLAM INJ 2MG/2ML VIAL As Ordered ONE; +ROSU40TA63 PO; +SEMA0.257 SQ; +VALS1TAB68 PO; +fentaNYL 100 MCG/2 ML INJECTION As Ordered ONE
[2024-02-15] MEDS: ATROPINE SULFATE 1% OPHTH SOLN 2ML BTL OD SCH (09:52)
[2024-02-15] MEDS: PHENYLEPHRINE 2.5% OPHTH SOL 2ML OD SCH (09:52)
[2024-02-15] MEDS: TETRACAINE 0.5% OPHTH SOLN 4ML OD SCH (09:52)
[2024-02-15] MEDS: FLURBIPROFEN 0.03% OPHTH SOLN 2.5 ML OD SCH (09:52)
[2024-02-15] MEDS: LIDOCAINE 1% SDV 5ML VIAL As Ordered ONE (10:58)
[2024-02-15] MEDS: CEFUROXIME 1MG/0.1ML INTRACAMERAL INJ As Ordered ONE (10:58)
[2024-02-15 11:20] VITALS: BP 140/71; TEMP 97.8; O2SAT 98
== END 2024-02-15 11:45 | disposition home or self-care (01) ==
LOC: M SDC 08:57
PROVIDERS: ATTEND Ophthalmology
DX: H25.11 Age-related nuclear cataract, right eye (principal); I10 Essential (primary) hypertension; E78.5 Hyperlipidemia, unspecified; E11.9 Type 2 diabetes mellitus without complications; Z79.84 Long term (current) use of oral hypoglycemic drugs; Z79.4 Long term (current) use of insulin; Z79.899 Other long term (current) drug therapy
CPT/HCPCS: 66984; J0697; J2250; J3010; V2632

== ENCOUNTER → 2024-03-09 | Outpatient (CLI) | payer OTHER, MEDICARE ==
[~2024-03-09] MED LIST changes: -LR 1,000 ML IV SCH; -MIDAZOLAM INJ 2MG/2ML VIAL As Ordered ONE; -fentaNYL 100 MCG/2 ML INJECTION As Ordered ONE
== END ==
LOC: M WUC 12:47
PROVIDERS: ATTEND Nurse Practitioner Family
DX: M25.551 Pain in right hip (principal)

== ENCOUNTER → 2024-08-01 | Outpatient (REF) | payer OTHER ==
[~2024-08-01] MED LIST changes: -ROSU40TA63 PO; +ROSU40TA81 PO
== END ==
LOC: M LAB REF 13:06
PROVIDERS: ATTEND Family Medicine
DX: D64.9 Anemia, unspecified (principal)

== ENCOUNTER → 2025-08-07 | Outpatient (REF) | payer MEDICARE, OTHER | LOC: M LAB REF 13:05 | PROVIDERS: ATTEND Family Medicine | DX: D64.9 Anemia, unspecified (principal) ==